=== PATIENT | female | born 1945 | race Caucasian/White ===

== ENCOUNTER 2017-01-01 20:28 | Inpatient (IN) | payer MEDICARE, OTHER ==
--- NOTE | ~2017-01-01 | HP ---
History And Physical [place] [id number] [facility] [place]. [address] NAME: KODI KEVIN : 43 STATUS : ADM IN [facility]#: [id number] AGE: 71 ADM/REG DATE : 01/01/17 MR#: [id number] REPORT SERV DATE: 01/02/17 DICTATED BY: IRENE ARREAGA DATE: 01/01/17 REPORT STATUS : Draft TRANSCRIBED BY: MODL DATE: 01/01/17 DATE OF ADMISSION: 01/01/2017 REASON FOR ADMISSION: Direct admission from primary care doctor office in [place], possibly Dr. Gabrielle Lester. CHIEF COMPLAINT: Hyperbilirubinemia and scleral icterus. HISTORY OF PRESENT ILLNESS: This is a 71-year-old female. She has a known positive at least 90-fbuz-gavb history of active smoking, known history of hypertension, possible asthma on Advair and Singulair as an outpatient, hyperlipidemia on simvastatin 80 mg. The patient developed nausea that seemed to be constant then became more postprandial as well. On it abated a bit then it reappeared over the weekend, had decreased appetite. Had blood work, which showed significant hyperbilirubinemia, now with T-bilirubin 6.0, alkaline phosphatase 283, AST/ALT 154/254. Hepatitis serologies were negative. A lipasemia was 401 which is elevated. Amylase is 137, which is elevated. The patient endorsed positive chills, positive nausea, some mild vomiting at one time, nonbilious. Positive pruritus. No diarrhea. No chest pain. No chest pressure. No shortness of breath. She has a mild cough, and have them more when she is supine, some very mild subxiphoid heartburn-like sensation. The patient as a result had a CT abdomen and pelvis at an outpatient facility known she had a white count of only 5.7, hemoglobin of 14.3. A CT abdomen and pelvis showed biliary and pancreatic ductal dilation suggesting distal obstructive process, pancreatic head or ampulla. Further evaluation was recommended. This was actually from an abdominal ultrasound. Gallbladder showed being distended and containing sludge. She also had a CT of abdomen and pelvis that showed abnormally distended hydropic gallbladder containing high- density sludge without evidence of cholecystitis though, abnormally dilated intrahepatic bile ducts, extrahepatic bile duct, and pancreatic duct without evidence of obstructing stone or mass possibly due to distal stricturing of the ducts or to the ampullary stenosis. No CT evidence of acute pancreatitis. As a result, the patient had difficulty getting direct admission to other hospitals, came here as a result, happily admit the patient. Vitals currently on , she has 115/64 blood pressure, 98.8 temp, 68 pulse, 99% on room air, and 16 respirations. REVIEW OF SYSTEMS: Review of systems done, see HPI. Otherwise, negative. PAST MEDICAL HISTORY/PAST SURGICAL HISTORY: See above including appendectomy, squamous cell, superficial skin cancer removal, melanoma on the leg removal, basal cell carcinoma removal as well. ALLERGIES: CODEINE HEADACHE, DRUG INTOLERANCE. History And Physical [address] [address] NAME: KODI KEVIN : 43 STATUS : ADM IN [facility]#: [id number] AGE: 71 ADM/REG DATE : 01/01/17 MR#: [id number] REPORT SERV DATE: 01/02/17 DICTATED BY: IRENE ARREAGA DATE: 01/01/17 REPORT STATUS : Draft TRANSCRIBED BY: ZEN DATE: 01/01/17 HOME MEDICATIONS: See MAR. We will continue what is relevant. FAMILY HISTORY: Hypertension at least in one parent. SOCIAL HISTORY: Still 70-lufe-mtze active history of smoking. No alcohol. No drug use. OBJECTIVE: VITAL SIGNS: See vitals above. GENERAL: No acute distress. HEENT: Positive scleral icterus. Otherwise PERRLA. CARDIOVASCULAR: Regular rate and rhythm. No murmur. No carotid bruits. RESPIRATORY: Clear to auscultation bilaterally. No wheezes. No crackles except decreased breath sounds. ABDOMEN: She does have some mild right upper quadrant positive Gray's tenderness to palpation. No peritoneal signs. No rebound tenderness. EXTREMITIES: No edema. No ecchymosis. NEURO: GCS 15. A and O x4/4. PSYCH: Mildly anxious. LABORATORY DATA: A 5.7 of white count, 14.3 hemoglobin, and 230,000 platelets. A 4.5 of potassium, bicarb 28, 0.74 creatinine, 9 BUN, 140 sodium, T bilirubin 6.0, alkaline phosphatase 283, AST/ALT 154/254. Lipase seem to be 401, amylase 137. Hepatitis serologies initially as an outpatient were negative. CT and ultrasound, see above. ASSESSMENT AND PLAN: 1. Biliary stricture versus mass versus biliary obstruction causing hyperbilirubinemia with cholestatic transaminitis and some lipasemia. 2. Biliary colic. 3. Clinical chronic obstructive pulmonary disease. 4. Smoking dependence/nicotine dependence. 5. Systemic inflammatory response syndrome, mild tachypnea that is transient, mild tachycardia that is transient. PLAN: Admit this patient to [address] [place] [address]. Likely needs eventually ERCP, we will give an MRCP at this time. GI consultation likely gallstone and gallbladder will be taken out. Pending ERCP results of the MRCP we will plan her simvastatin 80 mg which is a very high doses that simvastatin to Lipitor 40 mg, Toprol-XL 25 mg and always add additional antihypertensives as needed. We will add Spiriva for clinical COPD, empiric Levaquin and Flagyl as I do not have any CBC in front of me, except from three days ago. Rest of my orders. All questions were answered. It took well over 60 minutes to do. Reference [employer] and [employer]. History And Physical [address] [address] NAME: KODI KEVIN : 43 STATUS : ADM IN PAT#: [id number] AGE: 71 ADM/REG DATE : 01/01/17 MR#: [id number] REPORT SERV DATE: 01/02/17 DICTATED BY: IRENE ARREAGA DATE: 01/01/17 REPORT STATUS : Draft TRANSCRIBED BY: ZEN DATE: 01/01/17 MEKHI/ZEN Irene Arreaga DO / [id number] CC: DO Dale Nolasco MD
--- NOTE | ~2017-01-01 | CN ---
Consultation Report [facility] [address] [place]. [address] NAME: KODI RINCON : 43 STATUS : ADM IN PAT#: [id number] AGE: 71 ADM/REG DATE : 01/01/17 MR#: [id number] REPORT SERV DATE: 01/02/17 DICTATED BY: SAVITA GARNER DATE: 01/02/17 REPORT STATUS : Draft TRANSCRIBED BY: MODL DATE: 01/02/17 GI CONSULTATION DATE OF CONSULTATION: 01/02/2017 REASON FOR CONSULTATION: Evaluation and management of elevated LFTs and abnormal CT scan. HISTORY OF PRESENT ILLNESS: Ms Rincon is a pleasant 71-year-old female patient admitted to [facility] on with a chief complaint of elevated LFTs, abnormal CT scan, concern for biliary obstruction versus ampullary mass. She gives a history of symptom onset roughly 1.5 weeks ago with nausea, some epigastric bloating. She states it has been waxing and waning. She saw her primary care physician. She states she has been on multiple times with multiple labs being done. She had, at last check in her primary care physician's office, a total bilirubin of 6, alkaline phosphatase 283, AST 154, ALT 254. She was checked for hepatitis and returned negative. Lipase was 401. She had a CT scan done at the [facility] showing abnormally distended gallbladder containing high-density sludge, but without evidence of inflammation to indicate acute cholecystitis. She had also abnormally dilated intrahepatic bile ducts, extrahepatic bile ducts, and pancreatic duct without evidence of obstructing stone or mass. The appearance could possibly be secondary to a distal stricturing of the ducts or to ampullary stenosis. She was supposed to see a GI, Kina in [place], as well as a surgeon, but secondary to no bed availability at [facility] [place], she was sent to [facility] for further care. Presently, her total bilirubin was 4.3, alkaline phosphatase 251, ALT 276, and AST 164. White count is normal at 5.2. She is being covered with Levaquin and Flagyl. She has an MRCP ordered. I have discussed with the patient. She will likely undergo ERCP tomorrow with Dr. Jacob plus or minus an endoscopic ultrasound based on the MRCP findings. I did discuss risks, benefits, alternatives, and complications with her to include, but not limited to risk of bleeding, perforation, infection, reaction to medications with cardiac and pulmonary side effects. She is agreeable to proceed and also did include hpxr-[id number]-hzuuuuc pancreatitis. I did discuss with her we will have Dr. Eren Lopez see her here for possible cholecystectomy if needed. PAST MEDICAL HISTORY: Tobacco abuse, hypertension, elevated cholesterol, asthma, squamous- cell carcinoma, skin melanoma removal on the leg and basal cell carcinoma removal. PAST SURGICAL HISTORY: Appendectomy. ALLERGIES: CODEINE. HOME MEDICATIONS: Xanax, Advair, Proventil, Lopressor, Singulair, and Zocor. SOCIAL HISTORY: She is . Denies alcohol or illicit drugs. Positive for tobacco use. FAMILY HISTORY: Noncontributory from a GI standpoint. Consultation Report [address] [place]. [address] NAME: KODI RINCON : 43 STATUS : ADM IN [facility]#: [id number] AGE: 71 ADM/REG DATE : 01/01/17 MR#: [id number] REPORT SERV DATE: 01/02/17 DICTATED BY: SAVITA GARNER DATE: 01/02/17 REPORT STATUS : Draft TRANSCRIBED BY: ZEN DATE: 01/02/17 REVIEW OF SYSTEMS: A ten-point review of systems obtained. Pertinent positives addressed in the history of present illness. PHYSICAL EXAMINATION: VITAL SIGNS: Temperature 98.4, pulse 71, respirations 18, blood pressure 110/58. NEURO: Reveals an alert, female, sitting up in the bed with no focal deficits. GENERAL: Cooperative, in no apparent distress. She is awake, alert, and oriented x3. HEAD, EARS, EYES, NOSE, AND THROAT: She has mild scleral icterus noted. Very minimal jaundice to the skin. Pupils are equal, round, and reactive to light and accommodation. Normocephalic and atraumatic. NECK: No JVD. No palpable nodes. LUNGS: Coarse and diminished bilaterally in the bases with normal respiratory effort exhibited. Equal expansion. CARDIOVASCULAR SYSTEM: Regular rate and rhythm. ABDOMEN: Soft. Mild epigastric tenderness to deep palpation. Active bowel sounds. No organomegaly appreciated. PERTINENT LABORATORY DATA: Sodium is 141, potassium 4.3, and chloride is 104. Creatinine is 0.68. BUN is 6. White count 5.2, hemoglobin 13, hematocrit 39.3, and total bilirubin 4.3, alkaline phosphatase 251, ALT 276, AST 164, CA-19-9 is 308. ASSESSMENT: 1. Elevated liver function tests. 2. Questionable biliary obstruction versus ampullary mass. 3. Nausea with abdominal bloating. 4. Tobacco dependence. PLAN: 1. Follow with MRCP results. 2. +/- EUS at the time of ERCP on the . 3. We will hold her heparin for consult Dr. Lopez. 4. Questionable cholecystectomy during hospitalization. 5. Morning labs. 6. Continue antibiotic coverage. 7. We will give her preprocedure indomethacin per rectum. We will follow. JOAN/ZEN Savita CAROLYNN Horowitz Consultation Report [address] [place]. [address] NAME: KODI RINCON JOBY : 43 STATUS : ADM IN PAT#: [id number] AGE: 71 ADM/REG DATE : 01/01/17 MR#: [id number] REPORT SERV DATE: 01/02/17 DICTATED BY: SAVITA GARNER DATE: 01/02/17 REPORT STATUS : Draft TRANSCRIBED BY: ZEN DATE: 01/02/17 / [id number] CC: Lazaro Santiago PAUL DANIEL
--- NOTE | ~2017-01-01 | EGD ---
EGD REPORT [facility] [address] [address] NAME: KODI KEVIN : 43 STATUS : ADM IN PAT#: [id number] AGE: 71 ADM/REG DATE : 01/01/17 MR#: [id number] REPORT SERV DATE: 01/03/17 DICTATED BY: OLEKSANDR CHANEY DATE: 01/03/17 REPORT STATUS : Draft TRANSCRIBED BY: [facility] DATE: 01/03/17 Endoscopy Center Patient Name: Kodi Keivn Date of : 1945 Attending MD: OLEKSANDR CHANEY MD Procedure Date No Time: 01/03/2017 Procedure: ERCP Indications: Jaundice Referring MD: Dale Nixon Medicines: Monitored Anesthesia Care, General Anesthesia, Indomethacin 100 mg rectal Complications: No immediate complications. Estimated blood loss: Minimal. Procedure: Pre-Anesthesia Assessment: - ASA Grade Assessment: II - A patient with mild systemic disease. After obtaining informed consent, the scope was passed under direct vision. Throughout the procedure, the patient's blood pressure, pulse, and oxygen saturations were monitored continuously. The TJF Q180V [id number] was introduced through the mouth, and advanced to the duodenum and used to inject contrast into the bile duct. The ERCP was accomplished without difficulty. The patient tolerated the procedure well. Findings: The api architect film was normal. The esophagus was successfully intubated under direct vision without detailed examination of the pharynx, larynx, and associated structures, and upper GI tract. The entire second portion of the duodenum surrounding the major papilla was edematous and severely congested making cannulation difficult. There was also significant motility that made the procedure very difficult. After finally engaging the papilla and attempting to cannulate the common bile duct several times, the wire was found to preferentially enter the pancreatic duct. After passing the wire into the pancreatic duct several times, the wire was left in place and a second 0.035-inch Jagwire was used to attempt to cannulate the CBD alongside the PD wire. After several additional attempts, the CBD was finally accessed with a wire and was cannulated with the sphinctertome. The bile duct was deeply cannulated with the short-nosed traction sphincterotome. Contrast was injected. I personally interpreted the bile duct images. Image quality was adequate. The main bile duct was diffusely dilated, without a clear obstruction. A 12 mm biliary sphincterotomy was made with a monofilament traction (standard) sphincterotome using ERBE electrocautery. The sphincterotomy oozed blood. To discover objects, the biliary tree was swept with a 12 mm EGD REPORT [place] [address] [facility] [place]. [address] NAME: KODI KEVIN : 43 STATUS : ADM IN [facility]#: [id number] AGE: 71 ADM/REG DATE : 01/01/17 MR#: [id number] REPORT SERV DATE: 01/03/17 DICTATED BY: OLEKSANDR CHANEY DATE: 01/03/17 REPORT STATUS : Draft TRANSCRIBED BY: [employer] DATE: 01/03/17 balloon starting at the bifurcation. Nothing was found. However, after the first sweep, the cannulation was lost and despite several attempts to recannulate, there was persistent strong motility despite use of 2 grams of glucagon that the papilla was unable to be engaged again. Bile was draining from the sphincterotomy. The procedure was then terminated. Impression: - Significant swelling in the second portion of the duodenum. - The entire main bile duct was dilated, but no clear obstruction was seen. - Sphincterotomy cut, but unable to perform brushings or place stent due to swelling in the duodenum and abnormally strong motility Recommendation: - Return patient to [facility] for ongoing care. - Use broad spectrum antibiotics for 7 days. - Clear liquid diet. Procedure Code(s): --- Professional --- 64720, Endoscopic retrograde cholangiopancreatography (ERCP); with sphincterotomy/papillotomy Diagnosis Code(s): --- Professional --- K83.9, Disease of biliary tract, unspecified K83.1, Obstruction of bile duct R17, Unspecified jaundice CPT copyright 2013 [employer]. All rights reserved. The codes documented in this report are preliminary and upon hcc coders review may be revised to meet current compliance requirements. Oleksandr Chaney MD OLEKSANDR CHANEY MD 01/03/2017 9:27 AM This report has been signed electronically. Number of Addenda: 0 Note Initiated On: 01/03/2017 7:34 AM Scope Withdrawal Time 0 hours 0 minutes 0 seconds [address] [place] [address]
--- NOTE | ~2017-01-01 | CN ---
Consultation Report [place] [address] [facility] [place]. [address] NAME: KODI KEVIN : 43 STATUS : ADM IN [facility]#: [id number] AGE: 71 ADM/REG DATE : 01/01/17 MR#: [id number] REPORT SERV DATE: 01/03/17 DICTATED BY: SANIA CONKLIN III DATE: 01/03/17 REPORT STATUS : Draft TRANSCRIBED BY: MODBao DATE: 01/03/17 DATE OF CONSULTATION: 01/03/2017 ATTENDING PHYSICIAN: Dr. Hurt. REASON FOR CONSULT: 1. Obstructive jaundice. 2. Obstruction of distal common bile duct. 3. Recommendation regarding surgical management. HISTORY OF PRESENT ILLNESS: I am asked to see this 71-year-old female, hospitalized for the above reasons. The patient is admitted to the hospital after being sent directly from the office of her primary care physician in [facility], on 01/01/2017. The patient complains of nausea, associated with upper abdominal discomfort and bloating. The patient noted that her urine became very dark. She was seen by her primary care physician and noted to be jaundiced. It was felt that admission to the hospital is indicated. The patient had imaging studies in [place], which showed stones or sludge in the gallbladder and biliary dilatation. There was no evidence on the ultrasound of inflammatory changes consistent with cholecystitis. The patient has no prior history of similar symptoms. The patient states these symptoms have been ongoing for two weeks. She states her appetite has been very poor and she has had weight loss during this time. On admission, her bilirubin was 4.3. PAST MEDICAL HISTORY: 1. History of tobacco abuse. 2. History of hypertension. 3. History of hypercholesterolemia. 4. History of COPD secondary to tobacco abuse. PAST SURGICAL HISTORY: Status post appendectomy. ALLERGIES: CODEINE. MEDICATIONS: Xanax, Advair, Proventil, Lopressor, Singulair, and Zocor. SOCIAL HISTORY: The patient is . She lives in [facility]. She has a history of tobacco abuse. She has no history of alcohol use. FAMILY HISTORY: Unremarkable. REVIEW OF SYSTEMS: The patient's fourteen-point review of systems otherwise unremarkable. OBJECTIVE PHYSICAL EXAMINATION: GENERAL: This is a female, in no acute distress. She is Consultation Report [place] [id number] [place]. [address] NAME: KODI KEVIN : 43 STATUS : ADM IN PAT#: [id number] AGE: 71 ADM/REG DATE : 01/01/17 MR#: [id number] REPORT SERV DATE: 01/03/17 DICTATED BY: SANIA CONKLIN III DATE: 01/03/17 REPORT STATUS : Draft TRANSCRIBED BY: MODL DATE: 01/03/17 slightly jaundiced and her sclerae are icteric. VITAL SIGNS: Blood pressure 139/63, temperature 98.1. Pulse 79. HEENT: Unremarkable except for jaundice. NEURO: Cranial nerves 2 through 12 are normal. LUNGS: Clear. CARDIAC: Normal. ABDOMEN: Soft. Nontender. No masses. EXTREMITIES: Normal. LABORATORY DATA: Electrolytes are normal. Total bilirubin is elevated at 4.3 on admission. It has decreased to 2.3. Alkaline phosphatase 247. White blood cell count is 4.7 and hematocrit 39. MRI of the abdomen, which I have reviewed shows evidence for biliary dilatation with what appears to be obstruction at the level of the ampulla. No stones were seen and no definite masses seen. No pancreatic mass seen. The common bile duct system was dilated up to 1.2 cm and the pancreatic ductal system was also dilated. The gallbladder was distended, but no definite gallstones are seen. ASSESSMENT: 1. A 71-year-old female with obstructive jaundice, with unclear etiology. Imaging studies showed no definite ampullary or pancreatic mass. Sludge apparently was seen on the gallbladder ultrasound, but was not seen on the MRI. 2. Tobacco abuse. 3. Chronic obstructive pulmonary disease secondary to tobacco abuse. 4. Hypercholesterolemia. 5. Hypertension. PLAN: The patient has been admitted and started on parenteral fluids. The ERCP is pending for today. These findings and symptoms are of concern for a possible pancreatic or ampullary malignancy. Further workup is pending, primarily ERCP or possibly EUS. This plan has been explained to the patient. Her questions have been answered. She understands and agrees to this as planned. ELIZABETH/ZEN Sania Conklin III, M.D. / [id number] CC: Jax Veras M.D. Consultation Report [address] [address] NAME: KODI KEVIN : 43 STATUS : ADM IN PAT#: [id number] AGE: 71 ADM/REG DATE : 01/01/17 MR#: [id number] REPORT SERV DATE: 01/03/17 DICTATED BY: SANIA CONKLIN III DATE: 01/03/17 REPORT STATUS : Draft TRANSCRIBED BY: MODL DATE: 01/03/17 AMAYA WRIGHT
--- NOTE | ~2017-01-01 | DS ---
Discharge Summary [place] [id number] [place]. [address] NAME: KODI KEVIN : 43 STATUS : DIS IN PAT#: [id number] AGE: 71 ADM/REG DATE : 01/01/17 MR#: [id number] REPORT SERV DATE: 01/06/17 DICTATED BY: DATE: REPORT STATUS : Draft TRANSCRIBED BY: MODL DATE: 01/05/17 ADMISSION DATE: 01/01/2017 DISCHARGE DATE: 01/05/2017 The patient was admitted to the [facility]. CONSULTANTS: Included 1. Luiz Lopez M.D. of Surgical Oncology. 2. Oleksandr Jacob MD of Gastroenterology. DISCHARGE DIAGNOSES: 1. Obstructive jaundice. 2. 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 3. Mild post ERCP pancreatitis. 4. Gallbladder sludge but no stone. 5. Chronic obstructive pulmonary disease. 6. Tobacco abuse. 7. Hypertension. 8. Hyperlipidemia. 9. Impaired fasting glucose with hyperglycemia during hospitalization. IMAGING AND DIAGNOSTICS: Included 1. An MRCP done on 01/02/2017 with marked obstruction of the distal common bile duct and pancreas in the pancreatic head at the sphincter of Oddi. No definite intraluminal defects such as a stone. No classic features of a pancreatic head tumor. Could be a small sphincter of Oddi tumor or possibly a stricture at the sphincter. 2. ERCP on 01/03/[address] Oleksandr Jacob showed significant swelling in the second portion of the duodenum. The entire main bile duct was dilated, but no clear obstruction was seen. Sphincterotomy was performed but unable to perform brushings or place a stent due to swelling in the duodenum and abnormally strong motility. LABORATORY DATA: White blood cell count was normal. Procalcitonin 0.12. Comprehensive metabolic panel is pertinent for AST values between 160 and 200, ALT values between 250 and 300, alkaline phosphatase between 200 and 300. Total bilirubin values between 2.9 and 4.3. CA 19-9 was elevated at 308. CEA negative. TSH normal. Urinalysis with urobilinogen, 10 white cells, moderate leukocyte esterase. Subsequent culture demonstrated less than 5000 colony-forming units of diphtheroids. Lipase elevated between 850 and 1100 post ERCP. BRIEF HISTORY: For full details, please see the previously dictated history of present illness by Dr. Lloyd Hurt. This is a 71-year-old white female admitted from her primary care provider's office with labs demonstrating obstructive jaundice, mild increase in lipase, and some postprandial nausea and decreased appetite. Outpatient evaluation had included CT of abdomen and pelvis showing biliary and pancreatic ductal dilatation suggestive of a distal obstructive process, pancreatic head or ampullary fullness. Gallbladder ultrasound showed a distended gallbladder with sludge, but no evidence of acute cholecystitis. There was dilation of the intrahepatic bile ducts, extrahepatic bile ducts, Discharge Summary [address] [address] NAME: KODI KEVIN : 43 STATUS : DIS IN PAT#: [id number] AGE: 71 ADM/REG DATE : 01/01/17 MR#: [id number] REPORT SERV DATE: 01/06/17 DICTATED BY: DATE: REPORT STATUS : Draft TRANSCRIBED BY: MODL DATE: 01/05/17 and pancreatic duct without any evidence of obstructing stone or mass. There was no evidence of pancreatitis on any of the imaging. The patient resides in [place] and had been seeking direct admission to [facility] for further workup, there were no beds available. A bed became available at [facility], and the patient was directly admitted here for further GI evaluation. HOSPITAL COURSE: The patient was admitted to [address] [place] [address]. GI and Surgical Oncology were consulted, and the patient underwent an MRCP with results as dictated above. There was no evidence of a definitive stone nor definitive evidence of a pancreatic head mass or mass near the common bile duct. Thus, the patient underwent an ERCP on the 01/03/[address] Jacob noted diffuse edema through the first part of the duodenum, with dilation of the main bile duct. He was able to perform a sphincterotomy, but due to swelling of the duodenum and extreme peristalsis was unable to obtain brushings or place a stent. Post procedure, the patient's liver enzymes became progressively elevated initially. She was kept in the hospital for additional observation until liver enzymes were demonstrating down trend, which occurred on the morning of 01/05/2017. The patient was tolerating a full liquid diet without any nausea or vomiting, and no abdominal pain. She did have a slightly elevated lipase at discharge suggestive of post ERCP pancreatitis, clinically mild. The patient was seen by Dr. Eren Lopez of Surgical Oncology during the admission for concerns of a possible ampullary mass or sphincter of Oddi malignancy. Again, no definitive diagnosis could be found this admission, although brushings were not able to be performed on the ERCP for reasons noted above. Thus, the patient is to have extremely close outpatient followup, and she was counseled on the necessity for surveillance labs, possibly a repeat ERCP or endoscopic ultrasound, and repeat imaging. She was also advised that if she experiences any increase in her abdominal pain or recurrent nausea or vomiting on a soft low-fat bland diet that she will need to return to the emergency department for probable worsening pancreatitis. DISCHARGE DISPOSITION: To home in the care of supportive family with no specific activity restrictions. Diet recommendations of soft low-fat bland diet at discharge. She will follow up with Dr. Dale Nixon this week for repeat laboratories including CMP and lipase. She will also need an outpatient pancreatic protocol CT scan arranged within 2 to 3 weeks by her primary care provider. She needs to follow up with Dr. Sauceda of [facility] within 3 to 4 weeks for potential repeat ERCP or endoscopic ultrasound. She was provided with the phone number to schedule the appointment on Friday. DISCHARGE MEDICATIONS: Include Discharge Summary [address] [address] NAME: KODI KEVIN : 43 STATUS : DIS IN PAT#: [id number] AGE: 71 ADM/REG DATE : 01/01/17 MR#: [id number] REPORT SERV DATE: 01/06/17 DICTATED BY: DATE: REPORT STATUS : Draft TRANSCRIBED BY: SHIRINL DATE: 01/05/17 1. Singulair 10 mg p.o. daily. 2. Lopressor 50 mg p.o. twice a day. 3. Xanax 0.5 mg p.o. at bedtime as needed for insomnia. 4. Zocor 80 mg p.o. at bedtime. 5. Prinivil 20 mg p.o. daily. 6. Advair Diskus 250/50 one puff inhaled daily as needed for shortness of breath. Thirty five minutes was spent in completion of the discharge. PRETTY/ZEN Jax Veras M.D. / [id number] CC: Lazaro Santiago MD JOHN DANIEL BOEREMA Richard Hunter Jennings III, M.D.
[2017-01-01] MEDS ORDERED: X5 PO (21:39)
[2017-01-01] MEDS ORDERED: SINGULAIR1 PO (21:39)
[2017-01-01] MEDS ORDERED: ZOCOR80 MG PO (21:39)
[2017-01-01] MEDS ORDERED: ADVAIR250 INH (21:40)
[2017-01-01] MEDS ORDERED: LOP50 PO (21:40)
[2017-01-01] MEDS ORDERED: PRIN20 PO (21:40)
[2017-01-01 23:13] LABS: CREATININE 0.7 MG/DL (0.55-1.02)
[2017-01-02 00:09] LABS: BASOPHILS 0.4 %; BASOPHILS ABSOLUTE 0.02 10/3/uL (0.0-0.16); EOSINOPHILS 5.5 %; EOSINOPHILS ABSOLUTE 0.28 10/3/uL (0.0-0.53); HEMATOCRIT 37.1 % (36.0-48.0); HEMOGLOBIN 12.5 g/dL (12.0-16.0); IMMATURE GRANULOCYTES 0.2 %; IMMATURE GRANULOCYTES ABSOLUTE 0.01 10/3/uL (0.0-0.11); LYMPHOCYTES 28.4 %; LYMPHOCYTES ABSOLUTE 1.45 10/3/uL (0.67-4.30); MEAN CORPUS HGB CONC 33.7 g/dL (32.0-36.0); MEAN CORPUSCULAR HEMOGLOB 33.1 pg (26.0-34.0); MEAN CORPUSCULAR VOLUME 98.1 fL (80-100); MEAN PLATELET VOLUME 10.8 fL (9.2-13.0); MONOCYTES 8.6 %; MONOCYTES ABSOLUTE 0.44 10/3/uL (0.21-1.20); NEUTROPHILS 56.9 %; PLATELET COUNT 222 10/3/uL (150-400); RBC DISTRIBUTION WIDTH 14.7 % (12.0-16.0); RED CELL COUNT 3.78 10/6/uL (4.0-5.6); WHITE BLOOD CELLS 5.1 10/3/uL (4.5-10.5)
[2017-01-02 00:13] LABS: MANUAL DIFF NO %
[2017-01-02 00:44] LABS: ALBUMIN 3.1 G/DL (3.5-5.0); ALKALINE PHOSPHATASE 251 U/L (45-117); BUN (BLOOD UREA NITROGEN) 8 MG/DL (6-23); CALCIUM, SERUM 8.3 MG/DL (8.5-10.4); CHLORIDE, SERUM 104 MMOL/L (96-112); CO2 (CARBON DIOXIDE) 29 MMOL/L (24-34); CREATININE 0.68 MG/DL (0.55-1.02); GFR AFRICAN AMERICAN 101 ML/MIN (>=60); GFR NON AFRICAN AMERICAN 87 ML/MIN (>=60); GLUCOSE, SERUM 145 MG/DL (60-99); PHOSPHORUS, SERUM 3.8 MG/DL (2.5-4.5); POTASSIUM, SERUM 3.6 MMOL/L (3.5-5.3); SGOT(AST) 164 U/L (5-40); SGPT(ALT) 276 U/L (5-65); SODIUM, SERUM 142 MMOL/L (135-148); TOTAL BILIRUBIN 4.3 MG/DL (0-1.2); TOTAL PROTEIN 6.1 G/DL (6.0-8.5); TROPONIN I <0.02 NG/ML (<0.05)
[2017-01-02 00:58] LABS: PROCALCITONIN 0.12 ng/mL (<0.5)
[2017-01-02 01:18] LABS: CA-19-9 308.1 U/ML (< 37.0)
[2017-01-02 01:19] LABS: CEA 3.2 NG/ML
[2017-01-02 04:54] LABS: ASCORBIC ACID (UR NOT ORDER) NEG (NEG); BILIRUBIN, URINE NEGATIVE (NEG); KETONE, URINE NEGATIVE (NEG); LEUKOCYTE ESTERASE(NOT OR MOD (NEG); WBC (NOT ORDERED) (RFLEX) 10 (0-5)
[2017-01-02 07:28] LABS: BASOPHILS 0.4 %; BASOPHILS ABSOLUTE 0.02 10/3/uL (0.0-0.16); EOSINOPHILS 4.8 %; EOSINOPHILS ABSOLUTE 0.25 10/3/uL (0.0-0.53); HEMATOCRIT 39.3 % (36.0-48.0); IMMATURE GRANULOCYTES 0.2 %; IMMATURE GRANULOCYTES ABSOLUTE 0.01 10/3/uL (0.0-0.11); LYMPHOCYTES 21.2 %; MEAN CORPUS HGB CONC 33.1 g/dL (32.0-36.0); MEAN CORPUSCULAR HEMOGLOB 32.7 pg (26.0-34.0); MEAN PLATELET VOLUME 11.1 fL (9.2-13.0); MONOCYTES 8.1 %; MONOCYTES ABSOLUTE 0.42 10/3/uL (0.21-1.20); NEUTROPHILS 65.3 %; NEUTROPHILS ABSOLUTE 3.39 10/3/uL (2.02-8.40); PLATELET COUNT 225 10/3/uL (150-400); RBC DISTRIBUTION WIDTH 14.8 % (12.0-16.0); RED CELL COUNT 3.97 10/6/uL (4.0-5.6); WHITE BLOOD CELLS 5.2 10/3/uL (4.5-10.5)
[2017-01-02 07:31] LABS: MANUAL DIFF NO %
[2017-01-02 07:45] LABS: BUN (BLOOD UREA NITROGEN) 6 MG/DL (6-23); CALCIUM, SERUM 8.6 MG/DL (8.5-10.4); CHLORIDE, SERUM 104 MMOL/L (96-112); CO2 (CARBON DIOXIDE) 28 MMOL/L (24-34); CREATININE 0.68 MG/DL (0.55-1.02); GFR AFRICAN AMERICAN 101 ML/MIN (>=60); GFR NON AFRICAN AMERICAN 87 ML/MIN (>=60); GLUCOSE, SERUM 133 MG/DL (60-99); PHOSPHORUS, SERUM 3.5 MG/DL (2.5-4.5); POTASSIUM, SERUM 4.3 MMOL/L (3.5-5.3); SODIUM, SERUM 141 MMOL/L (135-148); TROPONIN I <0.02 NG/ML (<0.05)
[2017-01-03 06:29] LABS: BASOPHILS 1.1 %; BASOPHILS ABSOLUTE 0.05 10/3/uL (0.0-0.16); EOSINOPHILS 7.1 %; EOSINOPHILS ABSOLUTE 0.33 10/3/uL (0.0-0.53); HEMATOCRIT 39.2 % (36.0-48.0); HEMOGLOBIN 13.1 g/dL (12.0-16.0); IMMATURE GRANULOCYTES 0.4 %; IMMATURE GRANULOCYTES ABSOLUTE 0.02 10/3/uL (0.0-0.11); LYMPHOCYTES 26.3 %; LYMPHOCYTES ABSOLUTE 1.23 10/3/uL (0.67-4.30); MEAN CORPUS HGB CONC 33.4 g/dL (32.0-36.0); MEAN CORPUSCULAR HEMOGLOB 32.8 pg (26.0-34.0); MEAN CORPUSCULAR VOLUME 98.2 fL (80-100); MEAN PLATELET VOLUME 11.4 fL (9.2-13.0); MONOCYTES ABSOLUTE 0.47 10/3/uL (0.21-1.20); NEUTROPHILS 55.1 %; NEUTROPHILS ABSOLUTE 2.58 10/3/uL (2.02-8.40); PLATELET COUNT 230 10/3/uL (150-400); RBC DISTRIBUTION WIDTH 14.6 % (12.0-16.0); RED CELL COUNT 3.99 10/6/uL (4.0-5.6); WHITE BLOOD CELLS 4.7 10/3/uL (4.5-10.5)
[2017-01-03 06:30] LABS: INTERNATIONAL NORMAL RATI 1.1 UNITS (-); PROTIME (NOT ORD) 13.6 SEC (12.0-14.5)
[2017-01-03 06:31] LABS: MANUAL DIFF NO %
[2017-01-03 06:38] LABS: A/G RATIO 0.9 (0.7-1.9); ALKALINE PHOSPHATASE 247 U/L (45-117); BUN (BLOOD UREA NITROGEN) 5 MG/DL (6-23); CALCIUM, SERUM 8.9 MG/DL (8.5-10.4); CHLORIDE, SERUM 106 MMOL/L (96-112); CO2 (CARBON DIOXIDE) 27 MMOL/L (24-34); CREATININE 0.62 MG/DL (0.55-1.02); DIRECT BILIRUBIN 1.6 MG/DL (0.0-0.4); GFR AFRICAN AMERICAN 104 ML/MIN (>=60); GFR NON AFRICAN AMERICAN 90 ML/MIN (>=60); GLOBULIN 3.2 G/DL (2.5-4.1); GLUCOSE, SERUM 117 MG/DL (60-99); INDIRECT BILIRUBIN(NOT ORDER) 0.9 MG/DL (0.1-0.9); PHOSPHORUS, SERUM 3.5 MG/DL (2.5-4.5); SGOT(AST) 107 U/L (5-40); SGPT(ALT) 219 U/L (5-65); SODIUM, SERUM 141 MMOL/L (135-148); TOTAL PROTEIN 6.2 G/DL (6.0-8.5)
[2017-01-03 06:46] LABS: TOTAL BILIRUBIN 2.5 MG/DL (0-1.2)
[2017-01-03 19:46] LABS: ALBUMIN 2.8 G/DL (3.5-5.0); DIRECT BILIRUBIN 2.6 MG/DL (0.0-0.4); INDIRECT BILIRUBIN(NOT ORDER) 0.8 MG/DL (0.1-0.9); TOTAL BILIRUBIN 3.4 MG/DL (0-1.2); TOTAL PROTEIN 5.8 G/DL (6.0-8.5)
[2017-01-04 07:06] LABS: BASOPHILS 0.4 %; BASOPHILS ABSOLUTE 0.02 10/3/uL (0.0-0.16); EOSINOPHILS 2.6 %; EOSINOPHILS ABSOLUTE 0.14 10/3/uL (0.0-0.53); HEMATOCRIT 36.3 % (36.0-48.0); HEMOGLOBIN 12.2 g/dL (12.0-16.0); IMMATURE GRANULOCYTES 0.4 %; IMMATURE GRANULOCYTES ABSOLUTE 0.02 10/3/uL (0.0-0.11); LYMPHOCYTES ABSOLUTE 0.66 10/3/uL (0.67-4.30); MEAN CORPUS HGB CONC 33.6 g/dL (32.0-36.0); MEAN CORPUSCULAR HEMOGLOB 33.3 pg (26.0-34.0); MEAN CORPUSCULAR VOLUME 99.2 fL (80-100); MEAN PLATELET VOLUME 11.6 fL (9.2-13.0); MONOCYTES 7.7 %; MONOCYTES ABSOLUTE 0.42 10/3/uL (0.21-1.20); NEUTROPHILS 76.9 %; NEUTROPHILS ABSOLUTE 4.22 10/3/uL (2.02-8.40); PLATELET COUNT 232 10/3/uL (150-400); RBC DISTRIBUTION WIDTH 14.4 % (12.0-16.0); RED CELL COUNT 3.66 10/6/uL (4.0-5.6); WHITE BLOOD CELLS 5.5 10/3/uL (4.5-10.5)
[2017-01-04 07:11] LABS: MANUAL DIFF NO %
[2017-01-04 07:13] LABS: BUN (BLOOD UREA NITROGEN) 5 MG/DL (6-23); CALCIUM, SERUM 8.4 MG/DL (8.5-10.4); CHLORIDE, SERUM 103 MMOL/L (96-112); CO2 (CARBON DIOXIDE) 28 MMOL/L (24-34); CREATININE 0.68 MG/DL (0.55-1.02); DIRECT BILIRUBIN 2.6 MG/DL (0.0-0.4); GFR AFRICAN AMERICAN 101 ML/MIN (>=60); GFR NON AFRICAN AMERICAN 87 ML/MIN (>=60); GLUCOSE, SERUM 111 MG/DL (60-99); INDIRECT BILIRUBIN(NOT ORDER) 1.1 MG/DL (0.1-0.9); PHOSPHORUS, SERUM 3.4 MG/DL (2.5-4.5); POTASSIUM, SERUM 4.2 MMOL/L (3.5-5.3); SGOT(AST) 144 U/L (5-40); SGPT(ALT) 216 U/L (5-65); SODIUM, SERUM 141 MMOL/L (135-148); TOTAL BILIRUBIN 3.7 MG/DL (0-1.2)
[2017-01-04 07:15] LABS: ALKALINE PHOSPHATASE 275 U/L (45-117)
[2017-01-04 18:08] LABS: ALBUMIN 3.2 G/DL (3.5-5.0); TOTAL BILIRUBIN 3.8 MG/DL (0-1.2); TOTAL PROTEIN 6.1 G/DL (6.0-8.5)
[2017-01-04 18:09] LABS: DIRECT BILIRUBIN 3.1 MG/DL (0.0-0.4); INDIRECT BILIRUBIN(NOT ORDER) 0.7 MG/DL (0.1-0.9)
[2017-01-05 06:46] LABS: BASOPHILS 1.2 %; BASOPHILS ABSOLUTE 0.05 10/3/uL (0.0-0.16); EOSINOPHILS 5.9 %; EOSINOPHILS ABSOLUTE 0.24 10/3/uL (0.0-0.53); HEMATOCRIT 37.4 % (36.0-48.0); HEMOGLOBIN 12.2 g/dL (12.0-16.0); IMMATURE GRANULOCYTES 0.2 %; IMMATURE GRANULOCYTES ABSOLUTE 0.01 10/3/uL (0.0-0.11); LYMPHOCYTES 25.9 %; LYMPHOCYTES ABSOLUTE 1.06 10/3/uL (0.67-4.30); MEAN CORPUS HGB CONC 32.6 g/dL (32.0-36.0); MEAN CORPUSCULAR HEMOGLOB 32.1 pg (26.0-34.0); MEAN CORPUSCULAR VOLUME 98.4 fL (80-100); MEAN PLATELET VOLUME 11.4 fL (9.2-13.0); MONOCYTES 8.6 %; MONOCYTES ABSOLUTE 0.35 10/3/uL (0.21-1.20); NEUTROPHILS 58.2 %; NEUTROPHILS ABSOLUTE 2.38 10/3/uL (2.02-8.40); PLATELET COUNT 220 10/3/uL (150-400); RBC DISTRIBUTION WIDTH 14.8 % (12.0-16.0); WHITE BLOOD CELLS 4.1 10/3/uL (4.5-10.5)
[2017-01-05 06:47] LABS: MANUAL DIFF NO %
[2017-01-05 06:57] LABS: ALBUMIN 2.9 G/DL (3.5-5.0); ALKALINE PHOSPHATASE 297 U/L (45-117); BUN (BLOOD UREA NITROGEN) 6 MG/DL (6-23); CALCIUM, SERUM 8.5 MG/DL (8.5-10.4); CHLORIDE, SERUM 107 MMOL/L (96-112); CO2 (CARBON DIOXIDE) 29 MMOL/L (24-34); CREATININE 0.68 MG/DL (0.55-1.02); DIRECT BILIRUBIN 2.1 MG/DL (0.0-0.4); GFR AFRICAN AMERICAN 101 ML/MIN (>=60); GFR NON AFRICAN AMERICAN 87 ML/MIN (>=60); GLUCOSE, SERUM 97 MG/DL (60-99); INDIRECT BILIRUBIN(NOT ORDER) 0.8 MG/DL (0.1-0.9); PHOSPHORUS, SERUM 3.2 MG/DL (2.5-4.5); SGOT(AST) 129 U/L (5-40); SGPT(ALT) 197 U/L (5-65); SODIUM, SERUM 142 MMOL/L (135-148); TOTAL BILIRUBIN 2.9 MG/DL (0-1.2)
[2017-02-04] MEDS ORDERED: ULTRAM50 PO (18:22)
[2017-04-01] MEDS ORDERED: [UNRECOGNIZED DRUG - OTHER] PO (13:07)
== END 2017-01-05 14:34 | disposition home or self-care (01) | DRG 444 ==
LOC: 5SO 20:28
PROVIDERS: Internal Medicine; Internal Medicine Gastroenterology
PROC: 0FJB8ZZ Inspection of Hepatobiliary Duct, Via Natural or Artificial Opening Endoscopic (ICD-10-PCS; principal; 2017-01-03 07:00)
DX: K83.1 Obstruction of bile duct (principal); K85.80 Other acute pancreatitis without necrosis or infection; J44.9 Chronic obstructive pulmonary disease, unspecified; F17.210 Nicotine dependence, cigarettes, uncomplicated; Z82.49 Family history of ischemic heart disease and other diseases of the circulatory system; Z79.899 Other long term (current) drug therapy; Z90.49 Acquired absence of other specified parts of digestive tract; I10 Essential (primary) hypertension; Z88.5 Allergy status to narcotic agent
CPT/HCPCS: 74181; 74330; 80048; 80053; 80076; 81001; 82150; 82248; 82378; 82565; 82962; 83605; 83615; 83690; 83735; 84100; 84145; 84443; 84484; 85025; 85610; 86301; 87086; 87449; 93005; A9270-GY; C1769; C9113; J1610; J1956; J2370; J2405; J2710; J3010; Q9967

== ENCOUNTER 2017-01-24 14:35 | Day surgery (SDC) | payer MEDICARE, OTHER ==
--- NOTE | ~2017-01-24 | EGD ---
EGD REPORT [place] [address] [address] NAME: KODI KEVIN : 43 STATUS : REG [facility] PAT#: [id number] AGE: 71 ADM/REG DATE : 01/24/17 MR#: [id number] REPORT SERV DATE: 01/24/17 DICTATED BY: LUANA ALMANZA DATE: 01/24/17 REPORT STATUS : Draft [facility]ANS[facility]ED [facility]: [facility] DATE: 01/24/17 Endoscopy Center Patient Name: Kodi Kevin Date of : 1945 Attending MD: LUANA ALMANZA, Procedure Date No Time: 01/24/2017 Procedure: ERCP Indications: Jaundice Referring MD: Dale Nixon Medicines: General Anesthesia Complications: No immediate complications. Estimated blood loss: None Procedure: Pre-Anesthesia Assessment: - ASA Grade Assessment: III - A patient with severe systemic disease. After obtaining informed consent, the scope was passed under direct vision. Throughout the procedure, the patient's blood pressure, pulse, and oxygen saturations were monitored continuously. The TJF [id number] was introduced through the mouth, and advanced to the duodenum and used to inject contrast into the bile duct. The Endoscope was introduced through the and advanced to the duodenum. The ERCP was accomplished without difficulty. The patient tolerated the procedure well. Findings: A biliary sphincterotomy had been performed. The sphincterotomy appeared open. The major papilla was congested. The bile duct was deeply cannulated with the short-nosed traction sphincterotome. Contrast was injected. I personally interpreted the bile duct images. Ductal flow of contrast was adequate. The main bile duct was diffusely dilated, acquired. The largest diameter was 10 mm. The lower third of the main bile duct contained a single localized stenosis 10 mm in length at the very distal duct. Cells for cytology were obtained from the lower third of the main bile duct by brushing. One 10 mm by 6 cm covered metal stent was placed into the common bile duct. Bile flowed through the stent. The stent was in good position. Impression: - Prior biliary endoscopic sphincterotomy appeared open. - The major papilla appeared congested. - The entire main bile duct was dilated, acquired. - A localized biliary stricture was found. Recommendation: - Return to previous diet. - Continue present medications. - Await cytology results. EGD REPORT [address] [address] NAME: KODI KEVIN : 43 STATUS : REG [facility]#: [id number] AGE: 71 ADM/REG DATE : 01/24/17 MR#: [id number] REPORT SERV DATE: 01/24/17 DICTATED BY: LUANA ALMANZA DATE: 01/24/17 REPORT STATUS : Draft TRANSCRIBED BY: [employer] DATE: 01/24/17 - Likely need surgical referral. Procedure Code(s): --- Professional --- 77196, Endoscopic retrograde cholangiopancreatography (ERCP); with placement of endoscopic stent into biliary or pancreatic duct, including pre- and post-dilation and guide wire passage, when performed, including sphincterotomy, when performed, each stent Diagnosis Code(s): --- Professional --- K83.9, Disease of biliary tract, unspecified K83.5, Biliary cyst K83.8, Other specified diseases of biliary tract K87, Disorders of gallbladder, biliary tract and pancreas in diseases classified elsewhere K83.1, Obstruction of bile duct R17, Unspecified jaundice CPT copyright 2013 [employer]. All rights reserved. The codes documented in this report are preliminary and upon machine feeder review may be revised to meet current compliance requirements. LUANA ALMANZA, 01/24/2017 4:16 PM Number of Addenda: 0 Note Initiated On: 01/24/2017 1:17 PM Scope Withdrawal Time 0 hours 0 minutes 0 seconds [address] [address]
--- NOTE | ~2017-01-24 | EGD ---
EGD REPORT [facility] [address] [address] NAME: KODI KEVIN : 43 STATUS : REG [facility] PAT#: [id number] AGE: 71 ADM/REG DATE : 01/24/17 MR#: [id number] REPORT SERV DATE: 01/24/17 DICTATED BY: LUANA ALMANZA DATE: 01/24/17 REPORT STATUS : Draft TRANSCRIBED BY: [facility] DATE: 01/24/17 Endoscopy Center Patient Name: Kodi Kevin Date of : 1945 Attending MD: LUANA ALMANZA, Procedure Date No Time: 01/24/2017 Procedure: Upper EUS Indications: CBD stricture on MRCP, Suspected solid pancreatic neoplasm. Obstructive jaundice. Referring MD: Dale Nixon Medicines: Monitored Anesthesia Care Complications: No immediate complications. Estimated blood loss: None. Procedure: Pre-Anesthesia Assessment: - ASA Grade Assessment: III - A patient with severe systemic disease. After obtaining informed consent, the endoscope was passed under direct vision. Throughout the procedure, the patient's blood pressure, pulse, and oxygen saturations were monitored continuously. The Endoscope was introduced through the mouth, and advanced to the second part of duodenum. Findings: Endosonographic Finding : There was no sign of significant endosonographic abnormality in the entire pancreas. No masses, the pancreatic duct was well visualized from ampulla to tail, the pancreatic duct was regular in contour. There was dilation in the common bile duct which measured up to 10 mm. No lymphadenopathy seen. There was no sign of significant endosonographic abnormality in the examined duodenum. Endosonographic images of the stomach were unremarkable. There was no sign of significant endosonographic abnormality in the esophagus. Impression: - There was no sign of significant pathology in the entire pancreas. - There was dilation in the common bile duct which measured up to 10 mm. - There was no sign of significant pathology in the examined duodenum. - Endosonographic images of the stomach were unremarkable. - There was no sign of significant pathology in the esophagus. EGD REPORT [facility] [address] [place]. [address] NAME: KODI KEVIN : 43 STATUS : REG [facility]#: [id number] AGE: 71 ADM/REG DATE : 01/24/17 MR#: [id number] REPORT SERV DATE: 01/24/17 DICTATED BY: LUANA ALMANZA DATE: 01/24/17 REPORT STATUS : Draft TRANSCRIBED BY: Arieso DATE: 01/24/17 Recommendation: - Return to previous diet. - Continue present medications. - Perform an ERCP today. Procedure Code(s): --- Professional --- 19307, Esophagogastroduodenoscopy, flexible, transoral; with endoscopic ultrasound examination, including the esophagus, stomach, and either the duodenum or a surgically altered stomach where the jejunum is examined distal to the anastomosis Diagnosis Code(s): --- Professional --- K83.8, Other specified diseases of biliary tract K83.1, Obstruction of bile duct CPT copyright 2013 [employer]. All rights reserved. The codes documented in this report are preliminary and upon net maker review may be revised to meet current compliance requirements. LUANA ALMANZA, 01/24/2017 4:13 PM Number of Addenda: 0 Note Initiated On: 01/24/2017 1:18 PM Scope Withdrawal Time 0 hours 0 minutes 0 seconds [address] [id number]
[~2017-01-24 14:35] MED LIST: ADVAIR250 INH; LOP50 PO; PRIN20 PO; SINGULAIR1 PO; X5 PO; ZOCOR80 MG PO
[2017-02-04] MEDS ORDERED: ULTRAM50 PO (18:22)
[2017-04-01] MEDS ORDERED: [UNRECOGNIZED DRUG - OTHER] PO (13:07)
== END 2017-01-24 19:43 | disposition home or self-care (01) ==
LOC: DMU 14:35
PROVIDERS: Internal Medicine Gastroenterology
PROC: 0F798DZ Dilation of Common Bile Duct with Intraluminal Device, Via Natural or Artificial Opening Endoscopic (ICD-10-PCS; principal; 2017-01-24 15:38)
PROC: 0DJ08ZZ Inspection of Upper Intestinal Tract, Via Natural or Artificial Opening Endoscopic (ICD-10-PCS; 2017-01-24 16:00)
DX: K83.1 Obstruction of bile duct (principal); K83.8 Other specified diseases of biliary tract; M19.90 Unspecified osteoarthritis, unspecified site; E78.00 Pure hypercholesterolemia, unspecified; K83.5 Biliary cyst; R17 Unspecified jaundice; Z88.5 Allergy status to narcotic agent; I10 Essential (primary) hypertension; Z87.891 Personal history of nicotine dependence
CPT/HCPCS: 74330; 88112; A9270-GY; C1725; C1769; C1876; J2250; J2370; J2405; J2710; J3010; Q9967

== ENCOUNTER 2017-02-06 11:51 | Observation (INO) | payer MEDICARE, OTHER ==
[2017-02-04 13:42] LABS: BASOPHILS 0.7 %; BASOPHILS ABSOLUTE 0.06 10/3/uL (0.0-0.16); EOSINOPHILS 1.9 %; EOSINOPHILS ABSOLUTE 0.16 10/3/uL (0.0-0.53); HEMOGLOBIN 12.6 g/dL (12.0-16.0); IMMATURE GRANULOCYTES 0.4 %; IMMATURE GRANULOCYTES ABSOLUTE 0.03 10/3/uL (0.0-0.11); LYMPHOCYTES 21.4 %; LYMPHOCYTES ABSOLUTE 1.82 10/3/uL (0.67-4.30); MEAN CORPUS HGB CONC 33.2 g/dL (32.0-36.0); MEAN CORPUSCULAR HEMOGLOB 32.9 pg (26.0-34.0); MEAN CORPUSCULAR VOLUME 99.2 fL (80-100); MONOCYTES 7.2 %; MONOCYTES ABSOLUTE 0.61 10/3/uL (0.21-1.20); NEUTROPHILS 68.4 %; NEUTROPHILS ABSOLUTE 5.83 10/3/uL (2.02-8.40); RED CELL COUNT 3.83 10/6/uL (4.0-5.6)
[2017-02-04 13:47] LABS: MANUAL DIFF NO %; PLATELET COUNT 397 10/3/uL (150-400); WHITE BLOOD CELLS 8.5 10/3/uL (4.5-10.5)
[2017-02-04 13:48] LABS: PROTIME (NOT ORD) 12.6 SEC (12.0-14.5)
[2017-02-04 13:49] LABS: PARTIAL THROMBO TIME 36.8 SEC (22.5-37.2)
[2017-02-04 13:58] LABS: A/G RATIO 0.6 (0.7-1.9); ALBUMIN 2.5 G/DL (3.5-5.0); ALKALINE PHOSPHATASE 684 U/L (45-117); BUN (BLOOD UREA NITROGEN) 6 MG/DL (6-23); CALCIUM, SERUM 8.9 MG/DL (8.5-10.4); CHLORIDE, SERUM 101 MMOL/L (96-112); CO2 (CARBON DIOXIDE) 31 MMOL/L (24-34); CREATININE 0.47 MG/DL (0.55-1.02); GFR AFRICAN AMERICAN 114 ML/MIN (>=60); GFR NON AFRICAN AMERICAN 99 ML/MIN (>=60); GLOBULIN 3.9 G/DL (2.5-4.1); GLUCOSE, SERUM 122 MG/DL (60-99); SGOT(AST) 125 U/L (5-40); SGPT(ALT) 249 U/L (5-65); SODIUM, SERUM 140 MMOL/L (135-148); TOTAL BILIRUBIN 0.8 MG/DL (0-1.2); TOTAL PROTEIN 6.4 G/DL (6.0-8.5)
--- NOTE | ~2017-02-06 | OP ---
Record Of Operation [facility] [address] [place]. [address] NAME: KODI RINCON : 43 STATUS : ADM [facility] PAT#: [id number] AGE: 71 ADM/REG DATE : 02/06/17 MR#: [id number] REPORT SERV DATE: 02/06/17 DICTATED BY: KENZIE VANEGAS DATE: 02/06/17 REPORT STATUS : Draft TRANSCRIBED BY: MODL DATE: 02/06/17 DATE OF PROCEDURE: 02/06/2017 ATTENDING PHYSICIAN: Dr. Kenzie Vanegas. RESIDENT: Dr. Yina Lott. PREOPERATIVE DIAGNOSES: 1. 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 2. Biliary colic. POSTOPERATIVE DIAGNOSES: 1. 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 2. Biliary colic. PROCEDURE: Laparoscopic cholecystectomy. ANESTHESIA: General endotracheal anesthesia with local anesthetic administered by the surgeon. IV FLUIDS: 1100 mL. EBL: 10 mL. SPECIMEN: Gallbladder and contents and Calot's node. DRAINS: None. URINE OUTPUT: Not measured. COMPLICATIONS: None apparent. INDICATIONS: Ms. Rincon is a 71-year-old female, who presented to the hospital at the end of last month with obstructive jaundice. She underwent ERCP and was found to have ampullary stenosis. Secondary to continued pain, laparoscopic cholecystectomy was offered. Preoperatively, benefits, alternatives, and risks including bleeding, infection, risk of damage to adjacent structures including common bile duct and adjacent intestine as well as risk of port site hernia, chronic diarrhea, and risk of general endotracheal anesthesia including, but not limited to heart attack, stroke, and were all described in detail to the patient preoperatively. After having all questions answered, the patient voiced understanding of these risks and desired to proceed with surgery. PROCEDURE IN DETAIL: The patient was identified preoperatively as Kodi Rincon. It was determined the appropriately signed documents including history and physical and operative permit were secured in the chart. She was taken to the operating room, placed supine on the operating table where general endotracheal anesthesia was induced by the Anesthesia Service, Record Of Operation [facility] [address] [place]. [address] NAME: KODI RINCON : 43 STATUS : ADM [facility] PAT#: [id number] AGE: 71 ADM/REG DATE : 02/06/17 MR#: [id number] REPORT SERV DATE: 02/06/17 DICTATED BY: KENZIE VANEGAS DATE: 02/06/17 REPORT STATUS : Draft TRANSCRIBED BY: MODBao DATE: 02/06/17 who monitored the patient throughout the procedure. The abdomen was prepped and draped sterilely and an appropriate time-out procedure was completed wherein the patient, procedure site, positioning, allergies, equipment and administration of antibiotics were verified prior to beginning. An incision was made within the umbilical wall. This was dissected down to the level of the fascia, which was grasped, elevated, and incised between clamps. Entrance into the peritoneum was confirmed visually. A 10/12 trocar was placed and the abdomen was insufflated. The patient tolerated this well. Laparoscopic inserted, abdomen surveyed. No injury from initial trocar placement was noted. Furthermore, the abdomen was surveyed. There was no evidence of gross cancer anywhere or other pathology. Additional trocars were placed in the following locations after anesthetizing the skin, a 10 mm in the epigastrium and two 5 mm along the right costal margin. The gallbladder was noted to be quite distended. There were omental adhesions that required lysing with a combination of blunt dissection and electrocautery. Secondary to the gallbladder being tense, it was aspirated with a needle. Gallbladder was then grasped and retracted over the dome of the liver and the infundibulum was grasped and retracted toward the right lower quadrant. This exposed Calot's triangle. The cystic duct and cystic artery were circumferentially dissected free of surrounding tissues until the junction of the gallbladder and cystic duct was clearly identified. The cystic duct was noted to be dilated. Therefore, a PDS ligature was chosen to secure the proximal side of the cystic duct. The cystic artery was doubly clipped with two clips proximally, one clip distally, and ligated between clips. The gallbladder was then relieved with peritoneal attachments to the liver with electrocautery, placed in a laparoscopic retrieval bag, and removed from the abdomen through the umbilical port site. The abdomen was irrigated and suctioned free of irrigant. Hemostasis was ensured with electrocautery. Accessary trocars were then removed under direct vision. There was no intraabdominal bleeding. Laparoscope removed, umbilical trocar removed, and the abdomen was allowed to desufflate completely. The fascia of the umbilicus was closed with 0 Vicryl. Good tissue approximation was noted. All skin sites were closed with Monocryl in a subcuticular fashion except for the depth of the umbilical skin. A Xeroform was placed here and 4x4s and Tegaderm. Band-Aids were placed over the accessory incisions. This ended the procedure. All counts of needles, sponges, and instruments were correct at the end of the case. Dr. Vanegas was present and scrubbed for the entirety of the surgical procedure. Sedation was stopped. The patient was allowed to awaken and extubated in the operating room, and taken to postanesthesia care unit in good condition after having tolerated the procedure well. No intraoperative complications are noted. DICTATED BY: MD MIKY Vasquez/ZEN Kenzie Vanegas MD / [id number] CC: Kenzie Vanegas MD
[~2017-02-06 11:51] MED LIST changes: +ULTRAM50 PO
[2017-02-07 07:05] LABS: BASOPHILS 0.1 %; BASOPHILS ABSOLUTE 0.02 10/3/uL (0.0-0.16); EOSINOPHILS 0.1 %; EOSINOPHILS ABSOLUTE 0.01 10/3/uL (0.0-0.53); HEMATOCRIT 37.4 % (36.0-48.0); HEMOGLOBIN 12.1 g/dL (12.0-16.0); IMMATURE GRANULOCYTES 0.4 %; IMMATURE GRANULOCYTES ABSOLUTE 0.06 10/3/uL (0.0-0.11); LYMPHOCYTES 5.9 %; LYMPHOCYTES ABSOLUTE 0.85 10/3/uL (0.67-4.30); MEAN CORPUS HGB CONC 32.4 g/dL (32.0-36.0); MEAN CORPUSCULAR HEMOGLOB 32.6 pg (26.0-34.0); MEAN CORPUSCULAR VOLUME 100.8 fL (80-100); MEAN PLATELET VOLUME 9.9 fL (9.2-13.0); MONOCYTES 5.2 %; MONOCYTES ABSOLUTE 0.75 10/3/uL (0.21-1.20); NEUTROPHILS 88.3 %; NEUTROPHILS ABSOLUTE 12.73 10/3/uL (2.02-8.40); PLATELET COUNT 387 10/3/uL (150-400); RBC DISTRIBUTION WIDTH 13.8 % (12.0-16.0); RED CELL COUNT 3.71 10/6/uL (4.0-5.6)
[2017-02-07 07:08] LABS: MANUAL DIFF NO %; WHITE BLOOD CELLS 14.4 10/3/uL (4.5-10.5)
[2017-02-07 07:19] LABS: A/G RATIO 0.6 (0.7-1.9); ALBUMIN 2.5 G/DL (3.5-5.0); ALKALINE PHOSPHATASE 450 U/L (45-117); BUN (BLOOD UREA NITROGEN) 10 MG/DL (6-23); CALCIUM, SERUM 8.8 MG/DL (8.5-10.4); CHLORIDE, SERUM 98 MMOL/L (96-112); CO2 (CARBON DIOXIDE) 28 MMOL/L (24-34); CREATININE 0.77 MG/DL (0.55-1.02); GFR AFRICAN AMERICAN 89 ML/MIN (>=60); GFR NON AFRICAN AMERICAN 77 ML/MIN (>=60); GLOBULIN 4.1 G/DL (2.5-4.1); GLUCOSE, SERUM 212 MG/DL (60-99); POTASSIUM, SERUM 5.9 MMOL/L (3.5-5.3); SGOT(AST) 47 U/L (5-40); SGPT(ALT) 97 U/L (5-65); SODIUM, SERUM 135 MMOL/L (135-148); TOTAL PROTEIN 6.6 G/DL (6.0-8.5)
[2017-02-07] MEDS ORDERED: ZOFRAN4 PO (08:13)
[2017-02-07] MEDS ORDERED: OXYCOD PO (08:14)
[2017-04-01] MEDS ORDERED: [UNRECOGNIZED DRUG - OTHER] PO (13:07)
== END 2017-02-07 13:39 | disposition home or self-care (01) ==
LOC: SDC 11:51 → SDC/OF 17:22 → 5SO 18:59
PROVIDERS: Transplant Surgery
PROC: 0FT44ZZ Resection of Gallbladder, Percutaneous Endoscopic Approach (ICD-10-PCS; principal; 2017-02-06 14:00)
DX: K80.10 Calculus of gallbladder with chronic cholecystitis without obstruction (principal); I10 Essential (primary) hypertension; E78.00 Pure hypercholesterolemia, unspecified; M19.90 Unspecified osteoarthritis, unspecified site; R17 Unspecified jaundice; Z88.5 Allergy status to narcotic agent; Z87.01 Personal history of pneumonia (recurrent); Z90.49 Acquired absence of other specified parts of digestive tract; Z90.89 Acquired absence of other organs; Z98.890 Other specified postprocedural states
CPT/HCPCS: 80053; 85025; 85610; 85730; 88304; 93005; 94640; 96374; 96375; 96376; A9270-GY; G0378; J0690; J0694; J1170; J2250; J2405; J2710; J3010; Q9967

== ENCOUNTER 2017-03-05 16:21 | Inpatient (IN) | payer MEDICARE, OTHER ==
--- NOTE | ~2017-03-05 | HP ---
History And Physical [facility] [address] [facility] [place]. [address] NAME: KODI KEVIN : 43 STATUS : ADM IN [facility]#: [id number] AGE: 71 ADM/REG DATE : 03/05/17 MR#: [id number] REPORT SERV DATE: 03/06/17 DICTATED BY: IVY VALENZUELA DATE: 03/05/17 REPORT STATUS : Draft TRANSCRIBED BY: MODBao DATE: 03/05/17 DATE OF ADMISSION: 03/05/2017 CHIEF COMPLAINT: Intractable nausea and vomiting. HISTORY OF PRESENT ILLNESS: The patient is a 71-year-old female with a history of hypertension and COPD and biliary stricture, currently following with the GI Service. The patient is a direct admit from her GI physician, Dr. Sauceda, due to intractable nausea and vomiting. The patient has a history of biliary stricture. She is status post an ERCP with metal stent placement and also status post cholecystectomy. The patient tolerated the procedure well, however, had some vomiting which eventually resolved. The patient presented today to the GI office for her followup visit, at which time, she was complaining of intermittent abdominal pain. While in the office, the patient developed intractable nausea and vomiting. Her emesis appeared to be bilious. Given this development, the patient was sent over for to [facility] for admission under Hospitalist Service for further management. At the time of my evaluation, the patient corroborated the above story and states that the last time she had p.o. intake was yesterday, states that today she has been vomiting all through the day and describes her vomitus as clear yellowish green liquid. Also, reports abdominal epigastric pain and some mild back pain. She states that she feels also unwell. REVIEW OF SYSTEMS: Also at the time of my evaluation, the patient had episodes of coughing spells making it difficult to obtain review of systems. Review of systems unable to obtain as noted above. PAST MEDICAL HISTORY: 1. COPD. 2. Hypertension. 3. History of biliary stricture. 4. Tobacco abuse. PAST SURGICAL HISTORY: 1. Appendectomy. 2. Squamous cell superficial skin cancer removal. 3. Cholecystectomy. FAMILY HISTORY: Significant for hypertension. ALLERGIES: THE PATIENT IS ALLERGIC TO CODEINE. SOCIAL HISTORY: The patient has a 40-pack year smoking history. She is currently smoking despite being counseled to desist from smoking. Denies any alcohol or drug use. HOME MEDICATIONS: Not available at the time of dictation. PHYSICAL EXAMINATION: History And Physical [address] [place]. [address] NAME: KODI KEVIN : 43 STATUS : ADM IN PAT#: [id number] AGE: 71 ADM/REG DATE : 03/05/17 MR#: [id number] REPORT SERV DATE: 03/06/17 DICTATED BY: IVY VALENZUELA DATE: 03/05/17 REPORT STATUS : Draft TRANSCRIBED BY: ZEN DATE: 03/05/17 The patient is a direct admit. VITAL SIGNS: Have not been obtained at this point. GENERAL: The patient in mild distress noticing to have very frequent coughing spells. The patient appears emaciated and frail. Also, the patient in mild distress. HEENT: Normocephalic, atraumatic. Extraocular motors intact. Pupils round and reactive to light and accommodation. No conjunctival injection. No scleral icterus noted. CARDIOVASCULAR: Regular rate rhythm. S1, S2. No murmurs, rubs, or gallops. LUNGS: Clear to auscultation bilaterally. No wheezing, rales, or rhonchi. ABDOMEN: Soft. Positive bowel sounds. Tenderness noted in the epigastric area. No organomegaly noted. No distention present. No rebound tenderness and no guarding present. EXTREMITIES: No cyanosis, no clubbing, no edema. NEUROLOGIC: Alert and oriented x3. No focal deficits appreciated. LABORATORY DATA: No available labs at this time as the patient is a direct admit. ASSESSMENT: Intractable nausea, vomiting. The patient has a history of biliary stricture, status post surgical intervention and replacement not too long ago, well known to the GI Service. PLAN: 1. We will place the patient on antiemetics and consult GI. We will also obtain a CT scan of abdomen and pelvis with contrast to further characterize the etiology of the pain, nausea, and vomiting. 2. History of biliary stricture, status post cholecystectomy, managed as #1 above. 3. COPD stable. 4. Abdominal pain in the epigastric area, likely secondary to intractable nausea and vomiting. We will place the patient on antiemetics and also pain medications. 5. Tobacco abuse. We will place the patient on nicotine patch. 6. Hypertension. We will watch and stop the patient on home medications. PEPE/ZEN Ivy Valenzuela MD / [id number] CC: MD KYLE Rowland PAUL DANIEL
--- NOTE | ~2017-03-05 | EGD ---
EGD REPORT [facility] [address] [address] NAME: KODI KEVIN : 43 STATUS : ADM IN PAT#: [id number] AGE: 71 ADM/REG DATE : 03/05/17 MR#: [id number] REPORT SERV DATE: 03/07/17 DICTATED BY: OLEKSANDR CHANEY DATE: 03/07/17 REPORT STATUS : Draft TRANSCRIBED BY: [facility] DATE: 03/07/17 End[facility] Center Patient Name: Kodi Kevin Date of : 1945 Attending MD: OLEKSANDR CHANEY MD Procedure Date No Time: 03/07/2017 Procedure: Upper EUS Indications: Suspected pancreatic neoplasm, Weight loss, Epigastric abdominal pain, Persistent vomiting Referring MD: Dale Nixon Medicines: Monitored Anesthesia Care Complications: No immediate complications. Estimated blood loss: Minimal. Procedure: Pre-Anesthesia Assessment: - ASA Grade Assessment: III - A patient with severe systemic disease. After obtaining informed consent, the endoscope was passed under direct vision. Throughout the procedure, the patient's blood pressure, pulse, and oxygen saturations were monitored continuously. The Endoscope was introduced through the mouth, and advanced to the duodenal bulb. The GIF [id number] was introduced through the mouth, and advanced to the duodenal bulb. The upper EUS was accomplished without difficulty. The patient tolerated the procedure well. Findings: Endoscopic Finding : A single medium-sized nodule was found at the gastroesophageal junction. Biopsies were taken with a cold forceps for histology. Estimated blood loss was minimal. The entire examined stomach was normal. An acquired severe stenosis with abnormal appearing mucosa was found at 2nd part of the duodenum and was traversed. Biopsies were taken with a cold forceps for histology. Estimated blood loss was minimal. Endosonographic Finding : One stent was visualized endosonographically in the common bile duct. Extension of the stent was noted in the upper third of the main bile duct. The pancreatic duct had a dilated endosonographic appearance in the body of the pancreas and in the tail of the pancreas. The pancreatic duct measured up to 5 mm in diameter. Pancreatic parenchymal abnormalities were noted in the pancreatic head. These consisted of an area of hypoechoic foci around the CBD stent measuring approximately 35x35 mm. Fine needle aspiration was performed. EGD REPORT [address] [address] NAME: KODI KEVIN : [birth year] STATUS : ADM IN [facility]#: [id number] AGE: 71 ADM/REG DATE : 03/05/17 MR#: [id number] REPORT SERV DATE: 03/07/17 DICTATED BY: OLEKSANDR CHANEY DATE: 03/07/17 REPORT STATUS : Draft TRANSCRIBED BY: [employer] DATE: 03/07/17 Color Doppler imaging was utilized prior to needle puncture to confirm a lack of significant vascular structures within the needle path. Ten passes were made with the 25 gauge needle using a transduodenal approach. Some passes were made with a stylet. A first assist was present and performed a preliminary cytologic examination. Final cytology results are pending. Estimated blood loss was minimal. Endosonographic imaging of the visualized portion of the liver showed no abnormalities. One enlarged lymph node was visualized in the raleigh hepatis region. It measured 10 mm. The node was oval, hypoechoic and had well defined margins. A limited doppler examination was performed and revealed no significant vascular abnormalities. Impression: - Nodule found in the esophagus. Biopsied. - Normal stomach. - Acquired duodenal stenosis. Biopsied. - One stent was visualized endosonographically in the common bile duct. - The pancreatic duct had a dilated endosonographic appearance in the body of the pancreas and in the tail of the pancreas. The pancreatic duct measured up to 5 mm in diameter. - Pancreatic parenchymal abnormalities consisting of a large area of hypoechoic foci was noted in the pancreatic head. FNA was performed. - One - two enlarged lymph nodes was visualized in the raleigh hepatis region. - A limited doppler examination was performed and revealed no significant vascular abnormalities. Recommendation: - Return patient to [facility] for ongoing care. - Await cytology results. - Clear liquid diet today. Procedure Code(s): --- Professional --- 40726, Esophagogastroduodenoscopy, flexible, transoral; with transendoscopic ultrasound-guided intramural or transmural fine needle aspiration/biopsy(s) (includes endoscopic ultrasound examination of the esophagus, stomach, and either the duodenum or a surgically altered stomach where the jejunum is examined distal to the anastomosis) 59001, 59, Esophagogastroduodenoscopy, flexible, transoral; with biopsy, single or multiple Diagnosis Code(s): --- Professional --- EGD REPORT [address] [address] NAME: KODI KEVIN : [birth year] STATUS : ADM IN [facility]#: [id number] AGE: 71 ADM/REG DATE : 03/05/17 MR#: [id number] REPORT SERV DATE: 03/07/17 DICTATED BY: OLEKSANDR CHANEY DATE: 03/07/17 REPORT STATUS : Draft TRANSCRIBED BY: [employer] DATE: 03/07/17 K22.8, Other specified diseases of esophagus K31.5, Obstruction of duodenum R93.3, Abnormal findings on diagnostic imaging of other parts of digestive tract K86.9, Disease of pancreas, unspecified R59.0, Localized enlarged lymph nodes R63.4, Abnormal weight loss R10.13, Epigastric pain R11.10, Vomiting, unspecified CPT copyright 2013 [employer]. All rights reserved. The codes documented in this report are preliminary and upon lock and dam repairer review may be revised to meet current compliance requirements. Oleksandr Chaney MD OLEKSANDR CHANEY MD 03/07/2017 10:34 AM This report has been signed electronically. Number of Addenda: 0 Note Initiated On: 03/07/2017 9:01 AM Scope Withdrawal Time 0 hours 0 minutes 0 seconds [address] [id number]
--- NOTE | ~2017-03-05 | IDS ---
Interim Discharge Summary [facility] [address] [place]. [address] NAME: KODI RINCON : 43 STATUS : ADM IN [facility]#: [id number] AGE: 71 ADM/REG DATE : 03/05/17 MR#: [id number] REPORT SERV DATE: 03/11/17 DICTATED BY: IVY VALENZUELA DATE: 03/10/17 REPORT STATUS : Draft TRANSCRIBED BY: MODL DATE: 03/10/17 ADMISSION DATE: 03/05/2017 DISCHARGE DATE: Ms. Rincon is a 71-year-old female with a history of COPD and tobacco abuse, who presented to the hospital with a complaint of persistent nausea and vomiting. The patient is well known to the GI Service. 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 Status post that procedure, the patient had persistent symptoms which prompted a followup cholecystectomy as the patient thought that her symptoms were due to her gallbladder. Status post cholecystectomy, the patient initially improved; however, her symptoms returned prompting presentation to her clearance cutter's office. At the time of evaluation at the clearance cutter's office, the patient was having persistent vomiting which prompted a direct transfer to [facility]. Further chart review noted that her initial presentation was due to elevated LFTs which were noted to be secondary to biliary obstruction. At that time, the patient was seen by Gastroenterology and the patient subsequently had an ERCP which noted a 1 cm biliary stricture in the lower portion of the common bile duct which was brushed and stented. During that procedure samples were obtained which came back positive for atypical cells. At that time, the concern was for malignancy; however, pathology report came back and the etiology was consistent with inflammatory change. At the time of her presentation to the clearance cutter's office the initial thought was that may be the stent that was placed had migrated. The patient was admitted under Hospitalist Service. A CT abdomen and pelvis was obtained, which noted stent to be in stable position. However, the CT scan did note an enlargement of the head of the pancreas, which was concerning. A CA 19-9 was obtained together with a CEA which came back elevated at 1559 concerning for malignancy. GI subsequently took the patient to [facility] for an endoscopic ultrasound with biopsy. The patient is status post procedure and is awaiting pathology reports. Status post procedure the patient has remained hemodynamically stable for the most part with intermittent episodes of severe vomiting; however, yesterday on 03/09/2017 the patient developed a fever up to 102.9, prompting initiation of IV vancomycin and cefepime which the patient is currently on. Status post initiation of therapy her symptoms have significantly improved. Also during her hospitalization the patient's lipase was noted to be elevated at greater than 700 which trended up to greater than 800. The patient was diagnosed with pancreatitis and her IV fluid was increased to 200 mL/hour. Status post initiation of IV fluids, her lipase has progressively trended down and is currently at 410 with significant improvement in her symptoms. At this point, GI is still following the patient, awaiting pathology report to determine if the etiology of her system is secondary to a malignant process. INTERIM DIAGNOSES: Interim diagnoses at the time of dictation include: 1. Acute pancreatitis. 2. Elevated CA-19-9. 3. Tobacco abuse. 4. Chronic obstructive pulmonary disease. 5. Nausea and vomiting. 6. History of biliary stricture status post stent placement. Interim Discharge Summary [address] [address] NAME: KODI RINCON : 43 STATUS : ADM IN [facility]#: [id number] AGE: 71 ADM/REG DATE : 03/05/17 MR#: [id number] REPORT SERV DATE: 03/11/17 DICTATED BY: IVY VALENZUELA DATE: 03/10/17 REPORT STATUS : Draft TRANSCRIBED BY: ZEN DATE: 03/10/17 PROCEDURES: The patient had a CT abdomen and pelvis with contrast on 03/05/2017. The patient had an endoscopic ultrasound with biopsy on 03/07/2017. DISPOSITION: Pending pathology report to determine if this is a malignant process. If this is a malignant process, the next step will be a Surgery consult. Of note, the patient and some members of the family have been upset that the patient has been told that she has cancer without a definitive tissue diagnosis. At this point, we are reluctant about the possibility of surgery because they feel the patient is still weak and may not be able to undergo surgery. BIPIN Ivy Valenzuela MD / [id number] CC: MD Dale Rowland MD
--- NOTE | ~2017-03-05 | DS ---
Discharge Summary [facility] [address] [place]. [address] NAME: KODI KEVIN : 43 STATUS : DIS IN PAT#: [id number] AGE: 71 ADM/REG DATE : 03/05/17 MR#: [id number] REPORT SERV DATE: 03/14/17 DICTATED BY: DATE: REPORT STATUS : Draft TRANSCRIBED BY: MODL DATE: 03/13/17 ADMISSION DATE: 03/05/2017 DISCHARGE DATE: 03/13/2017 DISCHARGE DIAGNOSES: 1. Acute pancreatitis, resolved. 2. Biliary stricture, status post stent placement. 3. Elevated CA-99. 4. Tobacco abuse with chronic obstructive pulmonary disease. 5. Nausea, vomiting, and epigastric pain, resolved. CONSULTING PHYSICIANS: Include Dr. Oleksandr Jacob GI medicine as well as Dr. Vanegas with surgery. DISCHARGE MEDICATIONS: Include Xanax 0.5 mg p.o. at bedtime, Xanax 0.5 mg p.o. daily p.r.n. for anxiety, lisinopril 10 mg p.o. daily, Singulair 10 mg p.o. daily, Lopressor 50 mg p.o. b.i.d., Zocor 80 mg p.o. daily, oxycodone 5 mg p.o. q.6 hours p.r.n. for pain, nicotine patch 14 mg topical daily, Zantac 150 mg p.o. b.i.d., Advair Diskus 250/50 one puff inhalation b.i.d. IMAGING: Includes CT of the abdomen and pelvis with contrast which demonstrated a common bile duct stent in place with resolution of bile duct dilatation. There was enlargement of the head of the pancreas. Differential diagnosis suggested include a mass in the head of the pancreas and has not well delineated from the normal pancreas and no adenopathy was noted. PROCEDURES: Endoscopic ultrasound which was performed by Dr. Oleksandr Jacob for suspected pancreatic neoplasm. He performed a fine-needle aspiration which showed normal tissue. HOSPITAL COURSE/PROBLEM LIST: Please refer to Dr. Vinny Zurita's H and P dictated on 03/05/2017 as well as consultation report by Dr. Oleksandr Jacob on 03/05/[address] Vinny Zurita's interim discharge summary on 03/11/2017. I took over the care of this patient on 03/11/2014. 1. Acute pancreatitis. This is resolved. The patient's lipase initially was 410 and is now down to 391. She is not having abdominal pain at this time, or nausea and vomiting. As mentioned above, the patient does have a mass in the head of her pancreas, however, the fine needle aspiration was negative on EUS. The patient does have an elevated CA-99 of 1372.9 as well as a 40-pound weight loss since September of last year. The patient has been followed by Dr. Vanegas in Surgery. She will follow up with him as an outpatient on 03/27/2017 for possible Whipple procedure. 2. Biliary stricture, status post stent. The patient can follow up with Dr. Sauceda as needed if problems arise. 3. Tobacco abuse with COPD. I will continue the patient's home medication regimen as well as prescribe a nicotine patch. 4. Nausea, vomiting, and epigastric pain. This is resolved. Again the patient will follow up with Dr. Vanegas as well as Dr. Sauceda. Discharge Summary [address] [address] NAME: KODI KEVIN : 43 STATUS : DIS IN PAT#: [id number] AGE: 71 ADM/REG DATE : 03/05/17 MR#: [id number] REPORT SERV DATE: 03/14/17 DICTATED BY: DATE: REPORT STATUS : Draft TRANSCRIBED BY: MODL DATE: 03/13/17 This discharge took greater than 30 minutes for the patient education, medication reconciliation, and followup care planning. ATUL/ZEN Chaz Anderson NP / [id number] CC: Wilber Walker MD
--- NOTE | ~2017-03-05 | CN ---
Consultation Report [facility] [address] [place]. [address] NAME: KODI RINCON : 43 STATUS : ADM IN PAT#: [id number] AGE: 71 ADM/REG DATE : 03/05/17 MR#: [id number] REPORT SERV DATE: 03/06/17 DICTATED BY: OLEKSANDR CHANEY DATE: 03/06/17 REPORT STATUS : Draft TRANSCRIBED BY: MODL DATE: 03/06/17 INPATIENT CONSULTATION DATE OF CONSULTATION: 03/06/2017 REASON FOR CONSULTATION: Persistent nausea and vomiting. HISTORY OF PRESENT ILLNESS: Ms. Rincon is a very pleasant 71-year-old female with a past medical history most significant for indeterminate biliary stricture diagnosed in 12/2016, status post endoscopic ultrasound evaluation and biliary stent placement as well as recent cholecystectomy several weeks prior to this admission, who now presented as a direct admission from her tailer off's office for intractable nausea and vomiting. The patient had initially undergone a workup in 12/2016 for elevated LFTs and was found to have biliary obstruction. Initially attempt at ERCP for stent placement was unsuccessful due to difficulty with cannulation secondary to significant swelling in the second portion of the duodenum and severe spasming of her small bowel due to the prolonged nature of the procedure. Repeat procedure was performed three weeks later and the patient was noted to have a normal pancreas with no evidence of malignancy seen. The patient was found on ERCP to have a 1 cm biliary stricture in the lower portion of the common bile duct, which was brushed and stented, brushings came back positive for atypical cells, but not favoring malignancy, rather more favoring reactive or inflammatory cell type. Since then, the patient continued to have upper GI symptoms of nausea, vomiting, and abdominal pain. The patient underwent cholecystectomy for concern that her symptoms may be related to mild cholecystitis on 02/10/2017 and the patient did well for almost three weeks. After two and half weeks, the patient had a sudden return of her nausea and vomiting, which has been persistent since then. The patient has lost a total of 40 pounds per her account, 7 pounds just over the past week. No fevers or chills per her report. She complains of sharp epigastric pain, that is present most of the time, but is exacerbated by eating. No change in bowel habits. No jaundice. REVIEW OF SYSTEMS: All systems reviewed and were negative aside from what was mentioned in history of present illness. PAST MEDICAL HISTORY: Includes: 1. COPD. 2. Hypertension. 3. History of indeterminate biliary stricture. 4. Current cigarette smoker. 5. Status post appendectomy. 6. Status post cholecystectomy. 7. History of squamous cell superficial skin cancer. FAMILY HISTORY: The patient has no family history of GI related malignancy. Consultation Report [address] [address] NAME: KODI RINCON : 43 STATUS : ADM IN LOCATED WITHIN [facility]#: [id number] AGE: 71 ADM/REG DATE : 03/05/17 MR#: [id number] REPORT SERV DATE: 03/06/17 DICTATED BY: OLEKSANDR CHANEY DATE: 03/06/17 REPORT STATUS : Draft TRANSCRIBED BY: ZEN DATE: 03/06/17 SOCIAL HISTORY: The patient has a 40 pack year smoking history. No alcohol or drug use. ALLERGIES: THE PATIENT HAS AN ALLERGY TO CODEINE. HOME MEDICATIONS: Include: 1. Oxycodone. 2. Zantac. 3. Prinivil. 4. Lopressor. 5. Singulair. 6. Advair. 7. Xanax. 8. Zocor. PHYSICAL EXAMINATION: VITAL SIGNS: Most recent vital signs include a temperature of 98.4, with a T-max of 98.5, pulse rate of 74, blood pressure is 97/49, saturating 90% on 2 L nasal cannula oxygen. GENERAL INSPECTION: Reveals an elderly female, lying in bed, in no apparent distress. HEENT: Head is normocephalic, atraumatic with normal inspection of oral mucosa with moist mucous membranes. Sclerae are nonicteric. Pupils are equal and round. NECK: Supple without lymphadenopathy. HEART: Rate is regular with normal S1, S2. LUNGS: Sounds are clear to auscultation bilaterally. ABDOMEN: Soft with only mild tenderness to palpation in the epigastric area. No mass was appreciated. The patient had normoactive bowel sounds. No distention. EXTREMITIES: No cyanosis, clubbing, or edema. SKIN: No jaundice or rash. NEURO: No gross motor deficits. She was alert and oriented. Mood and affect are appropriate. Judgment appeared to be intact. LABORATORY STUDIES: Most recent laboratory results include CBC with normal white count of 10.0, hemoglobin of 12.3, and a platelet count of 313,000. Comprehensive metabolic panel was relatively unremarkable aside from a low chloride of 92, bicarb of 36, elevated creatinine of 2.03. Normal bilirubin. Elevated alkaline phosphatase of 247 and normal transaminases. DIAGNOSTIC STUDIES: CT of the abdomen and pelvis was performed, which showed a common bile duct stent in place with no biliary ductal dilatation and pneumobilia. There was enlargement of the head of the pancreas, possibly related to inflammation, but no definitive mass was seen. No focal liver lesions. No adenopathy. ASSESSMENT AND PLAN: Mrs. Rincon is a very pleasant 71-year-old female with past medical history of an indeterminate biliary stricture and recently status post cholecystectomy, who Consultation Report [address] [address] NAME: KODI RINCON : 43 STATUS : ADM IN PAT#: [id number] AGE: 71 ADM/REG DATE : 03/05/17 MR#: [id number] REPORT SERV DATE: 03/06/17 DICTATED BY: OLEKSANDR CHANEY DATE: 03/06/17 REPORT STATUS : Draft TRANSCRIBED BY: ZEN DATE: 03/06/17 presents with intractable nausea and vomiting. The patient has a CT scan that shows what appears to be a patent biliary stent with pneumobilia and relatively normal LFTs, although the patient's alkaline phosphatase is elevated, but this is no higher than previous values over the past several months. Concern for possible progression of her duodenal swelling secondary to either inflammation or possibly malignancy causing obstructive symptoms. We will proceed with EGD for further evaluation of the duodenum to see if there is any suggestion of continued narrowing of the small bowel. We will also perform an endoscopic ultrasound at the same time, to see if there is any evidence of lymphadenopathy or any mass in the head of the pancreas. We would also check CA 19-9, CEA to see if there is any elevation of her tumor markers. The patient previously had had an elevated CA 19-9. At that time, it was thought possibly related to biliary obstruction. If the patient has a persistently elevated CA 19-9, would be concerned about either cholangiocarcinoma or pancreatic cancer. Thank you very much for this interesting consult and allowing me to participate in Ms. Rincon's care. Please call with any questions or concerns you might have. C/MODL Oleksandr Chaney MD / [id number] CC: MD Dale Rowland
[~2017-03-05 16:21] MED LIST changes: +OXYCOD PO; +ZOFRAN4 PO
[2017-03-05 18:53] LABS: BASOPHILS 0.1 %; BASOPHILS ABSOLUTE 0.01 10/3/uL (0.0-0.16); EOSINOPHILS 0.1 %; EOSINOPHILS ABSOLUTE 0.02 10/3/uL (0.0-0.53); HEMOGLOBIN 13.7 g/dL (12.0-16.0); IMMATURE GRANULOCYTES 0.5 %; IMMATURE GRANULOCYTES ABSOLUTE 0.07 10/3/uL (0.0-0.11); LYMPHOCYTES 6.9 %; LYMPHOCYTES ABSOLUTE 0.95 10/3/uL (0.67-4.30); MEAN CORPUSCULAR HEMOGLOB 32.9 pg (26.0-34.0); MEAN PLATELET VOLUME 9.7 fL (9.2-13.0); MONOCYTES 6.6 %; MONOCYTES ABSOLUTE 0.91 10/3/uL (0.21-1.20); NEUTROPHILS 85.8 %; NEUTROPHILS ABSOLUTE 11.75 10/3/uL (2.02-8.40); PLATELET COUNT 366 10/3/uL (150-400); RBC DISTRIBUTION WIDTH 12.8 % (12.0-16.0); RED CELL COUNT 4.17 10/6/uL (4.0-5.6); WHITE BLOOD CELLS 13.7 10/3/uL (4.5-10.5)
[2017-03-05 18:55] LABS: MANUAL DIFF NO %; MEAN CORPUS HGB CONC 34.3 g/dL (32.0-36.0); MEAN CORPUSCULAR VOLUME 95.9 fL (80-100)
[2017-03-05 19:09] LABS: A/G RATIO 0.6 (0.7-1.9); ALBUMIN 2.9 G/DL (3.5-5.0); BUN (BLOOD UREA NITROGEN) 12 MG/DL (6-23); CALCIUM, SERUM 9.3 MG/DL (8.5-10.4); CHLORIDE, SERUM 93 MMOL/L (96-112); GLOBULIN 4.6 G/DL (2.5-4.1); GLUCOSE, SERUM 174 MG/DL (60-99); SGOT(AST) 23 U/L (5-40); SGPT(ALT) 64 U/L (5-65); SODIUM, SERUM 134 MMOL/L (135-148); TOTAL BILIRUBIN 0.8 MG/DL (0-1.2); TOTAL PROTEIN 7.5 G/DL (6.0-8.5)
[2017-03-05 19:12] LABS: ALKALINE PHOSPHATASE 308 U/L (45-117); CO2 (CARBON DIOXIDE) 37 MMOL/L (24-34); CREATININE 1.59 MG/DL (0.55-1.02); GFR AFRICAN AMERICAN 37 ML/MIN (>=60); GFR NON AFRICAN AMERICAN 32 ML/MIN (>=60); POTASSIUM, SERUM 3.8 MMOL/L (3.5-5.3)
[2017-03-05] MEDS ORDERED: ZANTAC 150 (20:39)
[2017-03-05] MEDS ORDERED: OXYCOD PO (20:39)
[2017-03-05] MEDS ORDERED: LOP50 PO (20:40)
[2017-03-05] MEDS ORDERED: PRIN10 PO (20:40)
[2017-03-05] MEDS ORDERED: SINGULAIR1 PO (20:40)
[2017-03-05] MEDS ORDERED: X5 PO ×2 (20:41)
[2017-03-05] MEDS ORDERED: ADVAIR250 INH (20:41)
[2017-03-05] MEDS ORDERED: ZOCOR80 MG PO (20:42)
[2017-03-06 06:44] LABS: BASOPHILS 0.2 %; BASOPHILS ABSOLUTE 0.02 10/3/uL (0.0-0.16); EOSINOPHILS 2.2 %; EOSINOPHILS ABSOLUTE 0.22 10/3/uL (0.0-0.53); HEMATOCRIT 36.7 % (36.0-48.0); HEMOGLOBIN 12.3 g/dL (12.0-16.0); IMMATURE GRANULOCYTES 0.5 %; IMMATURE GRANULOCYTES ABSOLUTE 0.05 10/3/uL (0.0-0.11); LYMPHOCYTES 13.8 %; LYMPHOCYTES ABSOLUTE 1.38 10/3/uL (0.67-4.30); MEAN CORPUS HGB CONC 33.5 g/dL (32.0-36.0); MEAN CORPUSCULAR HEMOGLOB 32.6 pg (26.0-34.0); MEAN CORPUSCULAR VOLUME 97.3 fL (80-100); MEAN PLATELET VOLUME 9.6 fL (9.2-13.0); NEUTROPHILS 74.3 %; NEUTROPHILS ABSOLUTE 7.43 10/3/uL (2.02-8.40); PLATELET COUNT 313 10/3/uL (150-400); RED CELL COUNT 3.77 10/6/uL (4.0-5.6)
[2017-03-06 06:46] LABS: MANUAL DIFF NO %
[2017-03-06 07:00] LABS: A/G RATIO 0.6 (0.7-1.9); ALBUMIN 2.5 G/DL (3.5-5.0); CHLORIDE, SERUM 92 MMOL/L (96-112); CO2 (CARBON DIOXIDE) 36 MMOL/L (24-34); CREATININE 2.03 MG/DL (0.55-1.02); GFR AFRICAN AMERICAN 28 ML/MIN (>=60); GFR NON AFRICAN AMERICAN 24 ML/MIN (>=60); GLOBULIN 4.2 G/DL (2.5-4.1); GLUCOSE, SERUM 166 MG/DL (60-99); POTASSIUM, SERUM 4.2 MMOL/L (3.5-5.3); SGOT(AST) 15 U/L (5-40); SGPT(ALT) 46 U/L (5-65); SODIUM, SERUM 135 MMOL/L (135-148); TOTAL BILIRUBIN 0.6 MG/DL (0-1.2); TOTAL PROTEIN 6.7 G/DL (6.0-8.5)
[2017-03-06 07:01] LABS: ALKALINE PHOSPHATASE 247 U/L (45-117); BUN (BLOOD UREA NITROGEN) 18 MG/DL (6-23)
[2017-03-06 12:14] LABS: CA-19-9 1559.2 U/ML (< 37.0)
[2017-03-06 12:15] LABS: CEA 2.7 NG/ML
[2017-03-07 05:17] LABS: BASOPHILS 0.3 %; BASOPHILS ABSOLUTE 0.03 10/3/uL (0.0-0.16); EOSINOPHILS 1.8 %; HEMATOCRIT 35.8 % (36.0-48.0); HEMOGLOBIN 11.9 g/dL (12.0-16.0); IMMATURE GRANULOCYTES 0.3 %; IMMATURE GRANULOCYTES ABSOLUTE 0.03 10/3/uL (0.0-0.11); LYMPHOCYTES 11.6 %; LYMPHOCYTES ABSOLUTE 1.26 10/3/uL (0.67-4.30); MEAN CORPUS HGB CONC 33.2 g/dL (32.0-36.0); MEAN CORPUSCULAR VOLUME 96.2 fL (80-100); MEAN PLATELET VOLUME 9.5 fL (9.2-13.0); MONOCYTES 6.8 %; MONOCYTES ABSOLUTE 0.74 10/3/uL (0.21-1.20); NEUTROPHILS 79.2 %; PLATELET COUNT 309 10/3/uL (150-400); RBC DISTRIBUTION WIDTH 12.8 % (12.0-16.0); RED CELL COUNT 3.72 10/6/uL (4.0-5.6); WHITE BLOOD CELLS 10.9 10/3/uL (4.5-10.5)
[2017-03-07 05:21] LABS: MANUAL DIFF NO %
[2017-03-07 05:29] LABS: A/G RATIO 0.6 (0.7-1.9); ALBUMIN 2.4 G/DL (3.5-5.0); ALKALINE PHOSPHATASE 237 U/L (45-117); CALCIUM, SERUM 8.7 MG/DL (8.5-10.4); CHLORIDE, SERUM 96 MMOL/L (96-112); GFR AFRICAN AMERICAN 75 ML/MIN (>=60); GFR NON AFRICAN AMERICAN 65 ML/MIN (>=60); GLUCOSE, SERUM 149 MG/DL (60-99); POTASSIUM, SERUM 3.9 MMOL/L (3.5-5.3); SGOT(AST) 19 U/L (5-40); SGPT(ALT) 35 U/L (5-65); SODIUM, SERUM 136 MMOL/L (135-148); TOTAL BILIRUBIN 0.6 MG/DL (0-1.2); TOTAL PROTEIN 6.4 G/DL (6.0-8.5)
[2017-03-07 05:51] LABS: BUN (BLOOD UREA NITROGEN) 10 MG/DL (6-23); CO2 (CARBON DIOXIDE) 31 MMOL/L (24-34); CREATININE 0.89 MG/DL (0.55-1.02)
[2017-03-08 06:38] LABS: BASOPHILS 0.2 %; BASOPHILS ABSOLUTE 0.02 10/3/uL (0.0-0.16); EOSINOPHILS 2.7 %; EOSINOPHILS ABSOLUTE 0.26 10/3/uL (0.0-0.53); HEMATOCRIT 36.2 % (36.0-48.0); HEMOGLOBIN 11.9 g/dL (12.0-16.0); IMMATURE GRANULOCYTES 0.4 %; IMMATURE GRANULOCYTES ABSOLUTE 0.04 10/3/uL (0.0-0.11); LYMPHOCYTES 12.2 %; LYMPHOCYTES ABSOLUTE 1.17 10/3/uL (0.67-4.30); MEAN CORPUS HGB CONC 32.9 g/dL (32.0-36.0); MEAN CORPUSCULAR HEMOGLOB 32.6 pg (26.0-34.0); MEAN PLATELET VOLUME 9.7 fL (9.2-13.0); MONOCYTES 6.9 %; MONOCYTES ABSOLUTE 0.66 10/3/uL (0.21-1.20); NEUTROPHILS 77.6 %; NEUTROPHILS ABSOLUTE 7.47 10/3/uL (2.02-8.40); PLATELET COUNT 290 10/3/uL (150-400); RBC DISTRIBUTION WIDTH 12.7 % (12.0-16.0); RED CELL COUNT 3.65 10/6/uL (4.0-5.6); WHITE BLOOD CELLS 9.6 10/3/uL (4.5-10.5)
[2017-03-08 06:40] LABS: MEAN CORPUSCULAR VOLUME 99.2 fL (80-100)
[2017-03-08 06:41] LABS: MANUAL DIFF NO %
[2017-03-08 06:52] LABS: A/G RATIO 0.6 (0.7-1.9); ALBUMIN 2.2 G/DL (3.5-5.0); CALCIUM, SERUM 8.7 MG/DL (8.5-10.4); CHLORIDE, SERUM 104 MMOL/L (96-112); CREATININE 0.72 MG/DL (0.55-1.02); GFR AFRICAN AMERICAN 97 ML/MIN (>=60); GFR NON AFRICAN AMERICAN 84 ML/MIN (>=60); GLOBULIN 3.9 G/DL (2.5-4.1); POTASSIUM, SERUM 4.4 MMOL/L (3.5-5.3); SGOT(AST) 39 U/L (5-40); SGPT(ALT) 40 U/L (5-65); SODIUM, SERUM 138 MMOL/L (135-148); TOTAL PROTEIN 6.1 G/DL (6.0-8.5)
[2017-03-08 06:53] LABS: ALKALINE PHOSPHATASE 282 U/L (45-117); BUN (BLOOD UREA NITROGEN) 6 MG/DL (6-23); CO2 (CARBON DIOXIDE) 26 MMOL/L (24-34); GLUCOSE, SERUM 109 MG/DL (60-99); TOTAL BILIRUBIN 1.1 MG/DL (0-1.2)
[2017-03-09 06:10] LABS: BUN (BLOOD UREA NITROGEN) 5 MG/DL (6-23); CHLORIDE, SERUM 107 MMOL/L (96-112); CO2 (CARBON DIOXIDE) 27 MMOL/L (24-34); CREATININE 0.56 MG/DL (0.55-1.02); GFR AFRICAN AMERICAN 108 ML/MIN (>=60); GFR NON AFRICAN AMERICAN 93 ML/MIN (>=60); GLUCOSE, SERUM 109 MG/DL (60-99); SGOT(AST) 29 U/L (5-40); SGPT(ALT) 34 U/L (5-65); SODIUM, SERUM 140 MMOL/L (135-148); TOTAL BILIRUBIN 0.7 MG/DL (0-1.2); TOTAL PROTEIN 5.1 G/DL (6.0-8.5)
[2017-03-09 06:27] LABS: A/G RATIO 0.6 (0.7-1.9); ALKALINE PHOSPHATASE 243 U/L (45-117); CALCIUM, SERUM 7.7 MG/DL (8.5-10.4); GLOBULIN 3.1 G/DL (2.5-4.1)
[2017-03-09 07:06] LABS: BASOPHILS 0.3 %; BASOPHILS ABSOLUTE 0.03 10/3/uL (0.0-0.16); EOSINOPHILS 2.4 %; EOSINOPHILS ABSOLUTE 0.22 10/3/uL (0.0-0.53); HEMATOCRIT 33.1 % (36.0-48.0); HEMOGLOBIN 10.7 g/dL (12.0-16.0); IMMATURE GRANULOCYTES 0.2 %; IMMATURE GRANULOCYTES ABSOLUTE 0.02 10/3/uL (0.0-0.11); LYMPHOCYTES 13.7 %; LYMPHOCYTES ABSOLUTE 1.28 10/3/uL (0.67-4.30); MEAN CORPUS HGB CONC 32.3 g/dL (32.0-36.0); MEAN CORPUSCULAR HEMOGLOB 31.7 pg (26.0-34.0); MEAN CORPUSCULAR VOLUME 97.9 fL (80-100); MEAN PLATELET VOLUME 9.8 fL (9.2-13.0); MONOCYTES 6.2 %; MONOCYTES ABSOLUTE 0.58 10/3/uL (0.21-1.20); NEUTROPHILS 77.2 %; NEUTROPHILS ABSOLUTE 7.23 10/3/uL (2.02-8.40); PLATELET COUNT 282 10/3/uL (150-400); RBC DISTRIBUTION WIDTH 12.7 % (12.0-16.0); RED CELL COUNT 3.38 10/6/uL (4.0-5.6); WHITE BLOOD CELLS 9.4 10/3/uL (4.5-10.5)
[2017-03-09 07:17] LABS: MANUAL DIFF NO %
[2017-03-10 06:57] LABS: BASOPHILS 0.2 %; BASOPHILS ABSOLUTE 0.02 10/3/uL (0.0-0.16); EOSINOPHILS 1.2 %; EOSINOPHILS ABSOLUTE 0.11 10/3/uL (0.0-0.53); HEMATOCRIT 32.8 % (36.0-48.0); HEMOGLOBIN 10.8 g/dL (12.0-16.0); IMMATURE GRANULOCYTES 0.3 %; IMMATURE GRANULOCYTES ABSOLUTE 0.03 10/3/uL (0.0-0.11); LYMPHOCYTES 10.7 %; LYMPHOCYTES ABSOLUTE 1.02 10/3/uL (0.67-4.30); MEAN CORPUS HGB CONC 32.9 g/dL (32.0-36.0); MEAN CORPUSCULAR HEMOGLOB 32.2 pg (26.0-34.0); MEAN CORPUSCULAR VOLUME 97.9 fL (80-100); MEAN PLATELET VOLUME 9.8 fL (9.2-13.0); MONOCYTES 6.1 %; MONOCYTES ABSOLUTE 0.58 10/3/uL (0.21-1.20); NEUTROPHILS 81.5 %; NEUTROPHILS ABSOLUTE 7.76 10/3/uL (2.02-8.40); PLATELET COUNT 251 10/3/uL (150-400); RBC DISTRIBUTION WIDTH 12.7 % (12.0-16.0); RED CELL COUNT 3.35 10/6/uL (4.0-5.6); WHITE BLOOD CELLS 9.5 10/3/uL (4.5-10.5)
[2017-03-10 07:00] LABS: MANUAL DIFF NO %
[2017-03-10 07:15] LABS: A/G RATIO 0.6 (0.7-1.9); BUN (BLOOD UREA NITROGEN) 5 MG/DL (6-23); CHLORIDE, SERUM 108 MMOL/L (96-112); CO2 (CARBON DIOXIDE) 25 MMOL/L (24-34); CREATININE 0.59 MG/DL (0.55-1.02); GFR AFRICAN AMERICAN 106 ML/MIN (>=60); GFR NON AFRICAN AMERICAN 92 ML/MIN (>=60); GLOBULIN 3.5 G/DL (2.5-4.1); GLUCOSE, SERUM 101 MG/DL (60-99); POTASSIUM, SERUM 3.3 MMOL/L (3.5-5.3); SGOT(AST) 35 U/L (5-40); SGPT(ALT) 38 U/L (5-65); SODIUM, SERUM 140 MMOL/L (135-148); TOTAL BILIRUBIN 1.1 MG/DL (0-1.2); TOTAL PROTEIN 5.5 G/DL (6.0-8.5)
[2017-03-10 07:16] LABS: ALKALINE PHOSPHATASE 272 U/L (45-117)
[2017-03-11 06:36] LABS: BASOPHILS 0.7 %; BASOPHILS ABSOLUTE 0.05 10/3/uL (0.0-0.16); EOSINOPHILS 4.3 %; EOSINOPHILS ABSOLUTE 0.32 10/3/uL (0.0-0.53); HEMATOCRIT 31.7 % (36.0-48.0); HEMOGLOBIN 10.7 g/dL (12.0-16.0); IMMATURE GRANULOCYTES 0.1 %; IMMATURE GRANULOCYTES ABSOLUTE 0.01 10/3/uL (0.0-0.11); LYMPHOCYTES ABSOLUTE 1.56 10/3/uL (0.67-4.30); MEAN CORPUS HGB CONC 33.8 g/dL (32.0-36.0); MEAN CORPUSCULAR HEMOGLOB 32.5 pg (26.0-34.0); MEAN CORPUSCULAR VOLUME 96.4 fL (80-100); MEAN PLATELET VOLUME 9.4 fL (9.2-13.0); MONOCYTES 5.8 %; MONOCYTES ABSOLUTE 0.43 10/3/uL (0.21-1.20); NEUTROPHILS 68.1 %; NEUTROPHILS ABSOLUTE 5.07 10/3/uL (2.02-8.40); PLATELET COUNT 280 10/3/uL (150-400); RBC DISTRIBUTION WIDTH 12.6 % (12.0-16.0); RED CELL COUNT 3.29 10/6/uL (4.0-5.6); WHITE BLOOD CELLS 7.4 10/3/uL (4.5-10.5)
[2017-03-11 06:37] LABS: MANUAL DIFF NO %
[2017-03-11 07:02] LABS: ALKALINE PHOSPHATASE 261 U/L (45-117); BUN (BLOOD UREA NITROGEN) 4 MG/DL (6-23); CA-19-9 1372.9 U/ML (< 37.0); CALCIUM, SERUM 8.4 MG/DL (8.5-10.4); CHLORIDE, SERUM 111 MMOL/L (96-112); CO2 (CARBON DIOXIDE) 25 MMOL/L (24-34); CREATININE 0.47 MG/DL (0.55-1.02); DIRECT BILIRUBIN 0.3 MG/DL (0.0-0.4); GFR AFRICAN AMERICAN 114 ML/MIN (>=60); GFR NON AFRICAN AMERICAN 99 ML/MIN (>=60); GLUCOSE, SERUM 118 MG/DL (60-99); INDIRECT BILIRUBIN(NOT ORDER) 0.3 MG/DL (0.1-0.9); POTASSIUM, SERUM 3.3 MMOL/L (3.5-5.3); SGOT(AST) 40 U/L (5-40); SGPT(ALT) 40 U/L (5-65); SODIUM, SERUM 143 MMOL/L (135-148); TOTAL BILIRUBIN 0.6 MG/DL (0-1.2); TOTAL PROTEIN 5.5 G/DL (6.0-8.5)
[2017-03-11 17:27] LABS: POTASSIUM, SERUM 3.7 MMOL/L (3.5-5.3); PREALBUMIN 6.6 MG/DL (17.0-43.0)
[2017-03-12 07:18] LABS: BASOPHILS 0.9 %; BASOPHILS ABSOLUTE 0.06 10/3/uL (0.0-0.16); EOSINOPHILS 4.3 %; EOSINOPHILS ABSOLUTE 0.28 10/3/uL (0.0-0.53); HEMATOCRIT 31.2 % (36.0-48.0); HEMOGLOBIN 10.6 g/dL (12.0-16.0); IMMATURE GRANULOCYTES 0.2 %; IMMATURE GRANULOCYTES ABSOLUTE 0.01 10/3/uL (0.0-0.11); LYMPHOCYTES 23.1 %; LYMPHOCYTES ABSOLUTE 1.49 10/3/uL (0.67-4.30); MANUAL DIFF NO %; MEAN CORPUSCULAR HEMOGLOB 32.1 pg (26.0-34.0); MEAN CORPUSCULAR VOLUME 94.5 fL (80-100); MEAN PLATELET VOLUME 9.5 fL (9.2-13.0); MONOCYTES 7.1 %; MONOCYTES ABSOLUTE 0.46 10/3/uL (0.21-1.20); NEUTROPHILS 64.4 %; NEUTROPHILS ABSOLUTE 4.16 10/3/uL (2.02-8.40); PLATELET COUNT 290 10/3/uL (150-400); RBC DISTRIBUTION WIDTH 12.8 % (12.0-16.0); WHITE BLOOD CELLS 6.5 10/3/uL (4.5-10.5)
[2017-03-12 07:30] LABS: BUN (BLOOD UREA NITROGEN) 2 MG/DL (6-23); CALCIUM, SERUM 8.4 MG/DL (8.5-10.4); CHLORIDE, SERUM 108 MMOL/L (96-112); CO2 (CARBON DIOXIDE) 29 MMOL/L (24-34); CREATININE 0.44 MG/DL (0.55-1.02); GFR AFRICAN AMERICAN 117 ML/MIN (>=60); GFR NON AFRICAN AMERICAN 101 ML/MIN (>=60); GLUCOSE, SERUM 104 MG/DL (60-99); POTASSIUM, SERUM 3.5 MMOL/L (3.5-5.3); SODIUM, SERUM 144 MMOL/L (135-148)
[2017-03-13] MEDS ORDERED: HABIT14 TOP (13:18)
[2017-04-01] MEDS ORDERED: [UNRECOGNIZED DRUG - OTHER] PO (13:07)
== END 2017-03-13 13:55 | disposition home or self-care (01) | DRG 438 ==
LOC: 5SO 16:21
PROVIDERS: Hospitalist; Internal Medicine; Internal Medicine Gastroenterology; Nurse Practitioner Family
PROC: 0DB98ZX Excision of Duodenum, Via Natural or Artificial Opening Endoscopic, Diagnostic (ICD-10-PCS; principal; 2017-03-07 08:30)
DX: K85.80 Other acute pancreatitis without necrosis or infection (principal); K83.1 Obstruction of bile duct; E43 Unspecified severe protein-calorie malnutrition; N17.9 Acute kidney failure, unspecified; Z68.1 Body mass index [BMI] 19.9 or less, adult; J44.9 Chronic obstructive pulmonary disease, unspecified; I10 Essential (primary) hypertension; F17.210 Nicotine dependence, cigarettes, uncomplicated; Z90.49 Acquired absence of other specified parts of digestive tract; Z98.890 Other specified postprocedural states; Z82.49 Family history of ischemic heart disease and other diseases of the circulatory system; Z88.5 Allergy status to narcotic agent; Z79.899 Other long term (current) drug therapy
CPT/HCPCS: 74177; 80048; 80053; 80076; 82150; 82378; 83690; 84132; 84134; 85025; 86301; 87040; 88172; 88173; 88305; 94640; A9270-GY; C1725; J0692; J2405; J3370; Q9967

== ENCOUNTER 2017-03-22 22:52 | Inpatient (IN) | payer MEDICARE, OTHER ==
--- NOTE | ~2017-03-22 | OP ---
Record Of Operation [facility] [address] [place]. [address] NAME: KODI KEVIN : 43 STATUS : ADM IN [facility]#: [id number] AGE: 71 ADM/REG DATE : 03/23/17 MR#: [id number] REPORT SERV DATE: 03/24/17 DICTATED BY: MEETA BERNARDO III DATE: 03/24/17 REPORT STATUS : Draft TRANSCRIBED BY: MODL DATE: 03/24/17 DATE OF PROCEDURE: 03/24/2017 INDICATION: Abnormal CT scan, abdominal pain, nausea, and vomiting. ANESTHESIA: General anesthesia. DESCRIPTION OF PROCEDURE: after consent was obtained. The risks and benefits explained to the patient's and herself, the patient was electively intubated and placed in the prone position through the use of a wedge on the fluoroscopy table in GI lab. An upper endoscope was advanced initially under direct visualization through normal hypopharynx in the esophagus down the stomach and on into the duodenum, where there was an area of the stent enhance the papilla. There was just erythematous heaped-up and nodular folds in and around this area. The air was suctioned. The scope was removed. A therapeutic side- viewing duodenal scope was likewise advanced down to the papilla. The stent could not be seen, due to the folds in this heaped-up mucosa, but the stent was cannulated easily. However, there was debris in the stent. Based on cholangiogram. There was a significant amount of pneumobilia in the biliary system and as such, due to the situation no aggressive intrahepatic opacification was achieved. The cholangiogram of the stent and just proximal to that was performed and there was multiple filling defects noted. As such, a 9 mm balloon was swept through the more proximal portions of bile duct and the common hepatic duct through the stent and copious amounts of debris were removed. No obvious pus. The free flowing bile was noted afterwards. Attempt to perform a pancreatography were neither intended nor attempted. The air was suctioned. Scope was removed. ASSESSMENT: 1. Abnormal mucosa in and around the papilla as described. 2. Mildly obstructed metal mesh stent with biliary debris, status post balloon removal. PLAN: I would recommend Whipple. MY/ZEN Meeta Bernardo III, M.D. / [id number] CC: Lazaro Perales MD
--- NOTE | ~2017-03-22 | CN ---
Consultation Report [facility] [address] [place]. [address] NAME: KODI KEVIN : 43 STATUS : ADM IN PAT#: [id number] AGE: 71 ADM/REG DATE : 03/23/17 MR#: [id number] REPORT SERV DATE: 03/24/17 DICTATED BY: MEETA BERNARDO III DATE: 03/23/17 REPORT STATUS : Draft TRANSCRIBED BY: MODBao DATE: 03/23/17 DATE OF CONSULTATION: 03/23/2017 HISTORY OF PRESENT ILLNESS: The patient is a 71-year-old white female, who presents well with a history of chronic abdominal pain with episodic nausea, vomiting, and 50-pound weight loss with evidence of a pancreatic head mass documented over the last couple of months. There have been exhaustive studies done since December to determine if this patient has a malignancy. While the CA-19-9 has been elevated and on one biopsy it showed atypical cells, only inflammatory cells have been found on any biopsies of the pancreatic mass, the last being on 03/07/2017. She had a metal mesh stent placed by Dr. Sauceda in late December and has been maintained, but she has had multiple episodes of pain and nausea, vomiting. It has been described as pancreatitis with mildly elevated lipase. She had a gallbladder taken out for which help some of the pain but not all of it. She is to see Dr. Vanegas to determine if she needs a Whipple. Over the last 3 days, she has been having progressive symptoms of pain and nausea, vomiting. When she presented, her liver tests are normal, but her lipase is elevated. Likewise, a CT scan showed what appears to be an occluded distal common bile duct stent with proximal pneumobilia. She states that she gets antibiotics during these episodes and gets better. She had an EUS last two and a half weeks ago that document the stent was patent. MEDICATIONS: Xanax, Advair, Prinivil, Lopressor, Singulair, Habitrol, Roxicodone, Zocor, Zantac. ALLERGIES: TYLENOL. PAST MEDICAL HISTORY: 1. Pancreatic head mass with recurrent bouts of abdominal pain and nausea, vomiting attributed to pancreatitis. 2. COPD. 3. Hypertension. 4. Elevated cholesterol. PAST SURGICAL HISTORY: Cholecystectomy, appendectomy, melanoma, basal cell carcinoma, squamous cell carcinoma. SOCIAL HISTORY: She is . No alcohol. She does smoke. PHYSICAL EXAMINATION: GENERAL: Elderly white female. VITAL SIGNS: Stable. HEENT: Atraumatic, normocephalic, anicteric, oropharynx is clean. CHEST: Clear to auscultation. CV: S1, S2. ABDOMEN: Soft, nontender. Good bowel sounds. EXTREMITIES: No edema. Consultation Report [address] [place]. [address] NAME: KODI KEVIN : 43 STATUS : ADM IN [facility]#: [id number] AGE: 71 ADM/REG DATE : 03/23/17 MR#: [id number] REPORT SERV DATE: 03/24/17 DICTATED BY: MEETA BERNARDO III DATE: 03/23/17 REPORT STATUS : Draft TRANSCRIBED BY: ZEN DATE: 03/23/17 LABORATORY DATA: CMP normal. Alk phos 160, albumin 2.7. Lipase now 462. CA 19-9, 1600. White count 7500, hemoglobin 12, platelets 338. INR 1.1. ASSESSMENT AND PLAN: 1. Episodic abdominal pain with nausea, vomiting, with an elevated lipase. The patient is a complicated 71-year-old white female, with a 60-pound weight loss, recurrent episodes of abdominal pain with nausea and vomiting. She had initial improvement with the laparoscopic cholecystectomy, but continues to have symptoms. Certainly my new biopsies of this mass have been negative, but the concern is still there that this could be a malignancy. Other things to consider of course would be autoimmune pancreatitis. She gets better with antibiotics. She has pneumobilia, but the distal end of the stent on CT scan on the sagittal appears to be blocked. Certainly the duodenal stricture could preempt all of these plans. As such, we will do the following:. a. Continue antibiotics. b. IV symptom control. c. IV fluids. d. ERCP to clean out the stent and to take more biopsies. MY/MODL Meeta Bernardo III, M.D. / [id number] CC: Lazaro Perales E. Romina, MD
--- NOTE | ~2017-03-22 | HP ---
History And Physical [place] [id number] [facility] [place]. [address] NAME: KODI KEVIN : 43 STATUS : ADM IN [facility]#: [id number] AGE: 71 ADM/REG DATE : 03/23/17 MR#: [id number] REPORT SERV DATE: 03/23/17 DICTATED BY: REED NORTH DATE: 03/23/17 REPORT STATUS : Draft TRANSCRIBED BY: MODL DATE: 03/23/17 DATE OF ADMISSION: 03/23/2017 CHIEF COMPLAINT: A 71-year-old female presenting with abdominal pain, nausea, vomiting, history of biliary stents. HISTORY OF PRESENTING ILLNESS: The patient's history was obtained through careful interview with the patient, , and daughter, coupled with review of [facility] medical records. The patient, in 2016, presented with increasing abdominal pain and evidence of a pancreatic head mass causing biliary obstruction earlier in February. She had a biliary stent placed under the care of Dr. Jacob with relief of some of her symptoms. The workup of her pancreatic head mass has been difficult, but she has an elevated CA19-9. Once, the patient had a brushing done of her biliary duct and it showed "atypical cells" in 12/2016, but then, followup ultrasound-guided biopsy by Dr. Sauceda was not able to diagnose an underlying cancer. Nonetheless, the patient is still being evaluated for a potential Whipple under the care of Dr. Vanegas. She was last hospitalized 03/05/2017 through 03/13/2017 with biliary stent placement and had significant relief of her symptoms and was able to return home in stable condition. On 03/19/2017, she began to develop nausea and has essentially had intractable vomiting for the last four days since the onset of her symptoms. She describes left epigastric abdominal discomfort, a sharp twisting "rolling around" and bloated quality, 8/10 severity, that comes in paroxysms, that are debilitating. She has had no diarrhea. She has had dizziness, orthostatic symptoms. No shortness of breath. No chest pain. Since 09/2016, the patient has lost a total of 50 pounds. REVIEW OF SYSTEMS: Otherwise, 14-point review of systems was obtained and was negative. PAST MEDICAL HISTORY: 1. Pancreatic head mass with elevated CA19-9, being evaluated for potential Whipple with Dr. Vanegas. 2. Biliary stent placement, followed by Dr. Jacob. 3. COPD. 4. Hypertension. 5. Elevated cholesterol. 6. No cardiac disease. PAST SURGICAL HISTORY: History And Physical [address] [place]. [address] NAME: KODI KEVIN : 43 STATUS : ADM IN [facility]#: [id number] AGE: 71 ADM/REG DATE : 03/23/17 MR#: [id number] REPORT SERV DATE: 03/23/17 DICTATED BY: REED NORTH DATE: 03/23/17 REPORT STATUS : Draft TRANSCRIBED BY: ZEN DATE: 03/23/17 1. Cholecystectomy, 01/2017. 2. Appendectomy. 3. Melanoma removed from the leg. 4. Basal cell carcinoma removed from skin. 5. Squamous cell carcinoma removed from skin. ALLERGIES: NO KNOWN DRUG ALLERGIES. SOCIAL HISTORY: The patient smokes cigarettes. Does not drink alcohol. Is . Lives in [place], [place]. Has two daughters. FAMILY HISTORY: Father with lung cancer. Brother of pneumonia and lung cancer. Mother lived into her 90s. CURRENT MEDICATIONS: Include Xanax 0.5 mg p.o. q.h.s. scheduled and 0.5 mg p.o. daily p.r.n., Advair inhaled twice a day, lisinopril 10 mg p.o. daily, Lopressor 50 mg p.o. b.i.d., Singulair 10 mg p.o. daily, nicotine patch, Roxicodone 5 mg p.o. q.6 hours p.r.n., Zantac 150 mg p.o. daily, Zocor 80 mg p.o. daily. PHYSICAL EXAMINATION: VITAL SIGNS: Temperature 99.6, pulse 81, blood pressure 102/49, respiratory rate 18, and O2 saturation 91% on room air. GENERAL: An ill-appearing female, in evidence of distress secondary to nausea and abdominal pain. HEENT: Pupils equal, round, and reactive to light. No conjunctival pallor. No scleral icterus. Nares are patent. Oropharynx is clear of obstruction. Moist mucous membranes. NECK: Trachea midline. No thyromegaly. LYMPH: No cervical lymphadenopathy. No supraclavicular lymphadenopathy. No inguinal lymphadenopathy. RESPIRATORY: Clear to auscultation at bases. No wheezes, rales, or rhonchi. Normal respiratory effort. CARDIOVASCULAR: Regular rate and rhythm. No murmurs, rubs, or gallops. No extremity edema is appreciated. ABDOMEN: Significant epigastric abdominal pain and left upper quadrant abdominal discomfort. A nondistended abdomen on my exam. No hepatosplenomegaly. DERMATOLOGICAL: Warm and dry extremities. No pallor, no cyanosis. PSYCHIATRIC: Normal affect. Good mood. Alert and oriented x3. LABORATORY DATA: White blood cell count 10.7, hemoglobin 14, hematocrit 41, platelets 434. Sodium 135, potassium 3.6, chloride 91, bicarb 39, BUN 14, creatinine 0.9, glucose 172. Urinalysis shows no evidence of infection, but 26 hyaline casts. Lipase 1190. Alkaline phosphatase 196. STUDIES: CT scan of the abdomen shows possible obstructive biliary stent with air filled and sludge-appearing bile. ASSESSMENT AND PLAN: History And Physical [address] [address] NAME: KODI KEVIN : 43 STATUS : ADM IN [facility]#: [id number] AGE: 71 ADM/REG DATE : 03/23/17 MR#: [id number] REPORT SERV DATE: 03/23/17 DICTATED BY: REED NORTH DATE: 03/23/17 REPORT STATUS : Draft TRANSCRIBED BY: ZEN DATE: 03/23/17 1. Acute pancreatitis. Make n.p.o. Place on IV fluids. Provide supportive care. Place on IV narcotic pain management. 2. Biliary stent. Obtain a GI consult with Dr. Bernardo to consider replacing. 3. Elevated CA19-9 with possible underlying pancreatic cancer and a 50-pound weight loss in the last six months. Recheck a CA19-9 level. The patient being evaluated for Whipple by Dr. Vanegas, surgeon. 4. Cholangitis. Presumptive diagnosis by the patient's exam on presentation. Place on IV Levaquin and IV Flagyl, and monitor. 5. Hyperglycemia. Check hemoglobin A1c. Place on sliding scale insulin. KPL/MODL Reed North M.D. / [id number] CC: Lazaro Johnson MD William M. Cooney, MD
--- NOTE | ~2017-03-22 | DS ---
Discharge Summary [place] [address] [place]. [address] NAME: KODI KEVIN : 43 STATUS : DIS IN PAT#: [id number] AGE: 71 ADM/REG DATE : 03/23/17 MR#: [id number] REPORT SERV DATE: 03/26/17 DICTATED BY: CHLOÉ HOPE DATE: 03/25/17 REPORT STATUS : Draft TRANSCRIBED BY: MODL DATE: 03/25/17 ADMISSION DATE: 03/23/2017 DISCHARGE DATE: 03/25/2017 PRINICIPAL DIAGNOSIS: Acute pancreatitis in association with a pancreatic mass and biliary ductal obstruction. SECONDARY DIAGNOSIS: Abnormal CA-19-9 level, hyperglycemia, history of COPD, and also hypertension. HISTORY OF PRESENT ILLNESS: Please see Dr. Brito's dictation on 03/23/2017. HOSPITAL COURSE: Admitted with recurrent pancreatitis about the fourth episode she had, initially attributed to cholecystitis; however, recurrent events happened and after cholecystectomy, she was found to have a pancreatic mass with a negative endoscopic ultrasound/biopsy, however, elevated CA-19-9, an ongoing suspicion for pancreatic cancer. She has had a biliary stent placed at the previous hospitalization but returned with recurrent pancreatitis. Biliary stent was re-evaluated and some debris cleared out; however, the main issue remained the pancreatic mass. Her surgeon unfortunately was out of town, could not see her here, but appointment was made with his office on , 03/27/2017, and she was released on 03/25/2017 after tolerating a diet to follow up with him. She would take pancreatic enzyme supplements in addition to her home medications and Augmentin for seven additional days of therapy with anticipation of Whipple procedure at some point in the near future. DICTATED BY: Lazaro Perales/ZEN Chloé Hope M.D. / [id number] CC: Lazaro Perales MD Munford Yates III, M.D.
[2017-03-22 21:32] LABS: WBC (NOT ORDERED) (RFLEX) 0 (0-5)
[2017-03-22 21:36] LABS: BASOPHILS 0.6 %; BASOPHILS ABSOLUTE 0.06 10/3/uL (0.0-0.16); EOSINOPHILS 2.9 %; EOSINOPHILS ABSOLUTE 0.31 10/3/uL (0.0-0.53); IMMATURE GRANULOCYTES 0.3 %; IMMATURE GRANULOCYTES ABSOLUTE 0.03 10/3/uL (0.0-0.11); LYMPHOCYTES 23.9 %; LYMPHOCYTES ABSOLUTE 2.56 10/3/uL (0.67-4.30); MEAN CORPUS HGB CONC 33.3 g/dL (32.0-36.0); MEAN CORPUSCULAR HEMOGLOB 33.1 pg (26.0-34.0); MEAN PLATELET VOLUME 9.2 fL (9.2-13.0); MONOCYTES 5.8 %; MONOCYTES ABSOLUTE 0.62 10/3/uL (0.21-1.20); NEUTROPHILS 66.5 %; NEUTROPHILS ABSOLUTE 7.13 10/3/uL (2.02-8.40); RBC DISTRIBUTION WIDTH 13.5 % (12.0-16.0)
[2017-03-22 21:37] LABS: HEMATOCRIT 41.4 % (36.0-48.0); HEMOGLOBIN 13.8 g/dL (12.0-16.0); MANUAL DIFF NO %; MEAN CORPUSCULAR VOLUME 99.3 fL (80-100); PLATELET COUNT 434 10/3/uL (150-400); RED CELL COUNT 4.17 10/6/uL (4.0-5.6); WHITE BLOOD CELLS 10.7 10/3/uL (4.5-10.5)
[2017-03-22 21:41] LABS: ASCORBIC ACID (UR NOT ORDER) 40 (NEG); BILIRUBIN, URINE NEGATIVE (NEG); ER URINALYSIS TAT 0 Hrs 10 Mins; KETONE, URINE NEGATIVE (NEG); LEUKOCYTE ESTERASE(NOT OR TRACE (NEG); NITRITE (URINE) NEG (NEG)
[2017-03-22 21:52] LABS: CREATININE 0.89 MG/DL (0.55-1.02); GFR AFRICAN AMERICAN 75 ML/MIN (>=60); GFR NON AFRICAN AMERICAN 65 ML/MIN (>=60); POTASSIUM, SERUM 3.6 MMOL/L (3.5-5.3); SGOT(AST) 17 U/L (5-40); SGPT(ALT) 24 U/L (5-65); TOTAL BILIRUBIN 0.8 MG/DL (0-1.2)
[2017-03-22 21:53] LABS: A/G RATIO 0.8 (0.7-1.9); ALBUMIN 3.4 G/DL (3.5-5.0); ALKALINE PHOSPHATASE 196 U/L (45-117); BUN (BLOOD UREA NITROGEN) 14 MG/DL (6-23); CALCIUM, SERUM 9.7 MG/DL (8.5-10.4); CHLORIDE, SERUM 91 MMOL/L (96-112); CO2 (CARBON DIOXIDE) 39 MMOL/L (24-34); GLOBULIN 4.3 G/DL (2.5-4.1); GLUCOSE, SERUM 172 MG/DL (60-99); SODIUM, SERUM 135 MMOL/L (135-148); TOTAL PROTEIN 7.7 G/DL (6.0-8.5)
[2017-03-22 22:32] LABS: DIRECT BILIRUBIN 0.2 MG/DL (0.0-0.4); INDIRECT BILIRUBIN(NOT ORDER) 0.6 MG/DL (0.1-0.9)
[~2017-03-22 22:52] MED LIST changes: +HABIT14 TOP; +PRIN10 PO; +ZANTAC 150
[2017-03-23 13:48] LABS: BASOPHILS 0.4 %; BASOPHILS ABSOLUTE 0.03 10/3/uL (0.0-0.16); EOSINOPHILS ABSOLUTE 0.15 10/3/uL (0.0-0.53); IMMATURE GRANULOCYTES 0.1 %; IMMATURE GRANULOCYTES ABSOLUTE 0.01 10/3/uL (0.0-0.11); LYMPHOCYTES 14.3 %; LYMPHOCYTES ABSOLUTE 1.07 10/3/uL (0.67-4.30); MEAN CORPUS HGB CONC 32.7 g/dL (32.0-36.0); MEAN CORPUSCULAR HEMOGLOB 32.6 pg (26.0-34.0); MEAN CORPUSCULAR VOLUME 99.7 fL (80-100); MEAN PLATELET VOLUME 9.5 fL (9.2-13.0); MONOCYTES 5.2 %; MONOCYTES ABSOLUTE 0.39 10/3/uL (0.21-1.20); NEUTROPHILS ABSOLUTE 5.82 10/3/uL (2.02-8.40); PLATELET COUNT 338 10/3/uL (150-400); RBC DISTRIBUTION WIDTH 13.5 % (12.0-16.0); RED CELL COUNT 3.68 10/6/uL (4.0-5.6); WHITE BLOOD CELLS 7.5 10/3/uL (4.5-10.5)
[2017-03-23 13:49] LABS: HEMATOCRIT 36.7 % (36.0-48.0); MANUAL DIFF NO %
[2017-03-23 13:56] LABS: INTERNATIONAL NORMAL RATI 1.1 UNITS (-); PARTIAL THROMBO TIME 31.3 SEC (22.5-37.2); PROTIME (NOT ORD) 13.7 SEC (12.0-14.5)
[2017-03-23 14:20] LABS: C-REACTIVE PROTEIN 8.4 MG/L (<8.0); CA-19-9 1599.3 U/ML (< 37.0); CALCIUM, SERUM 8.8 MG/DL (8.5-10.4); CREATININE 0.77 MG/DL (0.55-1.02); GFR AFRICAN AMERICAN 89 ML/MIN (>=60); GFR NON AFRICAN AMERICAN 77 ML/MIN (>=60); SGOT(AST) 19 U/L (5-40); SGPT(ALT) 21 U/L (5-65); SODIUM, SERUM 138 MMOL/L (135-148); TOTAL BILIRUBIN 0.7 MG/DL (0-1.2); TOTAL PROTEIN 6.5 G/DL (6.0-8.5)
[2017-03-23 14:21] LABS: A/G RATIO 0.7 (0.7-1.9); ALBUMIN 2.7 G/DL (3.5-5.0); ALKALINE PHOSPHATASE 160 U/L (45-117); BUN (BLOOD UREA NITROGEN) 9 MG/DL (6-23); CHLORIDE, SERUM 102 MMOL/L (96-112); CO2 (CARBON DIOXIDE) 31 MMOL/L (24-34); GLOBULIN 3.8 G/DL (2.5-4.1); GLUCOSE, SERUM 106 MG/DL (60-99); POTASSIUM, SERUM 4.4 MMOL/L (3.5-5.3); ULTRASENSITIVE TSH 0.742 MCIU/ML (0.358-3.740)
[2017-03-23 14:28] LABS: SED RATE 60 MM/HR (0-20)
[2017-03-23 14:35] LABS: PROCALCITONIN 0.51 ng/mL (<0.5)
[2017-03-24 04:27] LABS: BASOPHILS 0.6 %; BASOPHILS ABSOLUTE 0.03 10/3/uL (0.0-0.16); EOSINOPHILS 6.3 %; EOSINOPHILS ABSOLUTE 0.34 10/3/uL (0.0-0.53); HEMOGLOBIN 11.2 g/dL (12.0-16.0); IMMATURE GRANULOCYTES 0.2 %; IMMATURE GRANULOCYTES ABSOLUTE 0.01 10/3/uL (0.0-0.11); LYMPHOCYTES 27.9 %; LYMPHOCYTES ABSOLUTE 1.51 10/3/uL (0.67-4.30); MEAN PLATELET VOLUME 9.4 fL (9.2-13.0); MONOCYTES 8.9 %; MONOCYTES ABSOLUTE 0.48 10/3/uL (0.21-1.20); NEUTROPHILS 56.1 %; NEUTROPHILS ABSOLUTE 3.05 10/3/uL (2.02-8.40); PLATELET COUNT 321 10/3/uL (150-400); RBC DISTRIBUTION WIDTH 13.4 % (12.0-16.0); WHITE BLOOD CELLS 5.4 10/3/uL (4.5-10.5)
[2017-03-24 04:28] LABS: MANUAL DIFF NO %
[2017-03-24 04:45] LABS: A/G RATIO 0.7 (0.7-1.9); ALBUMIN 2.5 G/DL (3.5-5.0); ALKALINE PHOSPHATASE 150 U/L (45-117); BUN (BLOOD UREA NITROGEN) 7 MG/DL (6-23); CALCIUM, SERUM 8.9 MG/DL (8.5-10.4); CHLORIDE, SERUM 107 MMOL/L (96-112); CO2 (CARBON DIOXIDE) 29 MMOL/L (24-34); CREATININE 0.69 MG/DL (0.55-1.02); GFR AFRICAN AMERICAN 101 ML/MIN (>=60); GFR NON AFRICAN AMERICAN 87 ML/MIN (>=60); GLOBULIN 3.7 G/DL (2.5-4.1); GLUCOSE, SERUM 122 MG/DL (60-99); SGOT(AST) 16 U/L (5-40); SGPT(ALT) 17 U/L (5-65); SODIUM, SERUM 143 MMOL/L (135-148); TOTAL BILIRUBIN 0.5 MG/DL (0-1.2); TOTAL PROTEIN 6.2 G/DL (6.0-8.5)
[2017-03-25 04:24] LABS: CALCIUM, SERUM 9.2 MG/DL (8.5-10.4); CHLORIDE, SERUM 101 MMOL/L (96-112); CO2 (CARBON DIOXIDE) 29 MMOL/L (24-34); CREATININE 0.86 MG/DL (0.55-1.02); GFR AFRICAN AMERICAN 78 ML/MIN (>=60); GFR NON AFRICAN AMERICAN 67 ML/MIN (>=60); POTASSIUM, SERUM 4.3 MMOL/L (3.5-5.3); SODIUM, SERUM 137 MMOL/L (135-148)
[2017-03-25 04:25] LABS: BUN (BLOOD UREA NITROGEN) 11 MG/DL (6-23); GLUCOSE, SERUM 196 MG/DL (60-99)
[2017-03-25] MEDS ORDERED: ZENPEP5000 UNIT PO (10:10)
[2017-03-25] MEDS ORDERED: AUG875 PO (10:10)
[2017-03-25] MEDS ORDERED: PEP20 PO (10:11)
[2017-03-25] MEDS ORDERED: FLORASTOR250 MG PO (10:12)
[2017-04-01] MEDS ORDERED: [UNRECOGNIZED DRUG - OTHER] PO (13:07)
== END 2017-03-25 15:05 | disposition home or self-care (01) | DRG 919 ==
LOC: ER 22:52 → 4SO 03-23 00:43
PROVIDERS: Hospitalist; Internal Medicine; Internal Medicine Gastroenterology; Nurse Practitioner
PROC: BF101ZZ Fluoroscopy of Bile Ducts using Low Osmolar Contrast (ICD-10-PCS; principal; 2017-03-24 11:45)
PROC: 0FC98ZZ Extirpation of Matter from Common Bile Duct, Via Natural or Artificial Opening Endoscopic (ICD-10-PCS; 2017-03-24 11:45)
DX: T85.590A Other mechanical complication of bile duct prosthesis, initial encounter (principal); K85.90 Acute pancreatitis without necrosis or infection, unspecified; E11.65 Type 2 diabetes mellitus with hyperglycemia; J44.9 Chronic obstructive pulmonary disease, unspecified; Z68.1 Body mass index [BMI] 19.9 or less, adult; Y84.8 Other medical procedures as the cause of abnormal reaction of the patient, or of later complication, without mention of misadventure at the time of the procedure; Y92.009 Unspecified place in unspecified non-institutional (private) residence as the place of occurrence of the external cause; I10 Essential (primary) hypertension; E78.00 Pure hypercholesterolemia, unspecified; Z85.820 Personal history of malignant melanoma of skin; Z85.828 Personal history of other malignant neoplasm of skin; F17.210 Nicotine dependence, cigarettes, uncomplicated; Z88.8 Allergy status to other drugs, medicaments and biological substances; D37.8 Neoplasm of uncertain behavior of other specified digestive organs; R63.4 Abnormal weight loss
CPT/HCPCS: 74177; 74330; 80048; 80053; 81001; 82150; 82248; 82962; 83036; 83605; 83615; 83690; 83735; 84145; 84443; 85025; 85610; 85652; 85730; 86140; 86301; 94640; 96374; 99285; A9270-GY; C1769; J0330; J1956; J2405; J2710; J3010; Q9967

== ENCOUNTER 2017-04-09 07:43 | Inpatient (IN) | payer MEDICARE, OTHER ==
[2017-04-03 21:27] LABS: BASOPHILS 0.9 %; BASOPHILS ABSOLUTE 0.07 10/3/uL (0.0-0.16); EOSINOPHILS 3.6 %; EOSINOPHILS ABSOLUTE 0.28 10/3/uL (0.0-0.53); HEMATOCRIT 41.6 % (36.0-48.0); HEMOGLOBIN 13.2 g/dL (12.0-16.0); IMMATURE GRANULOCYTES 0.3 %; IMMATURE GRANULOCYTES ABSOLUTE 0.02 10/3/uL (0.0-0.11); LYMPHOCYTES 27.2 %; LYMPHOCYTES ABSOLUTE 2.12 10/3/uL (0.67-4.30); MANUAL DIFF NO %; MEAN CORPUS HGB CONC 31.7 g/dL (32.0-36.0); MEAN CORPUSCULAR HEMOGLOB 32.4 pg (26.0-34.0); MEAN PLATELET VOLUME 10.6 fL (9.2-13.0); MONOCYTES 5.3 %; MONOCYTES ABSOLUTE 0.41 10/3/uL (0.21-1.20); NEUTROPHILS 62.7 %; NEUTROPHILS ABSOLUTE 4.88 10/3/uL (2.02-8.40); PLATELET COUNT 309 10/3/uL (150-400); RBC DISTRIBUTION WIDTH 14.6 % (12.0-16.0); RED CELL COUNT 4.08 10/6/uL (4.0-5.6); WHITE BLOOD CELLS 7.8 10/3/uL (4.5-10.5)
[2017-04-03 21:33] LABS: PARTIAL THROMBO TIME 38.2 SEC (22.5-37.2)
[2017-04-03 21:45] LABS: BUN (BLOOD UREA NITROGEN) 10 MG/DL (6-23); CALCIUM, SERUM 9.1 MG/DL (8.5-10.4); CHLORIDE, SERUM 103 MMOL/L (96-112); CO2 (CARBON DIOXIDE) 31 MMOL/L (24-34); CREATININE 0.71 MG/DL (0.55-1.02); GFR AFRICAN AMERICAN 99 ML/MIN (>=60); GFR NON AFRICAN AMERICAN 85 ML/MIN (>=60); POTASSIUM, SERUM 4.4 MMOL/L (3.5-5.3); SGOT(AST) 43 U/L (5-40); SGPT(ALT) 33 U/L (5-65); SODIUM, SERUM 138 MMOL/L (135-148); TOTAL BILIRUBIN 0.3 MG/DL (0-1.2); TOTAL PROTEIN 6.8 G/DL (6.0-8.5)
[2017-04-03 21:46] LABS: A/G RATIO 1.1 (0.7-1.9); ALBUMIN 3.5 G/DL (3.5-5.0); ALKALINE PHOSPHATASE 136 U/L (45-117); GLOBULIN 3.3 G/DL (2.5-4.1); GLUCOSE, SERUM 142 MG/DL (60-99)
--- NOTE | ~2017-04-09 | DS ---
Discharge Summary [facility] [address] [place]. [address] NAME: KODI KEVIN : 43 STATUS : DIS IN PAT#: [id number] AGE: 71 ADM/REG DATE : 04/09/17 MR#: [id number] REPORT SERV DATE: 04/29/17 DICTATED BY: KENZIE VANEGAS DATE: 04/28/17 REPORT STATUS : Draft TRANSCRIBED BY: MODBao DATE: 04/28/17 Data Collection from hospitalization DISCHARGE DIAGNOSIS(ES): 1. Distal common bile duct stricture. 2. Hypertension. 3. Hyperlipidemia. 4. History of melanoma. 5. History of pancreatitis. 6. History of obstructive jaundice. 7. Tobacco use. CONSULTATIONS: None. PROCEDURES PERFORMED: Pancreaticoduodenectomy, omental pedicle flap 04/09/2017. PATHOLOGY: Common hepatic artery lymph node biopsy-one lymph node negative for tumor (0/1). Distal stomach, duodenum, and pancreas-pancreaticoduodenectomy (Whipple resection)-invasive well-differentiated adenocarcinoma. MEDICATIONS: Xanax 0.5 mg at bedtime and 0.5 mg daily as needed, Advair Diskus one puff via inhaler twice a day as needed, Zenpep 4 capsules as needed, Lopressor 50 mg twice a day, Singulair 10 mg every morning, Habitrol one patch topically daily, Prilosec 20 mg daily, Zofran 4 mg one to two tablets every four to six hours as needed, Percocet 7.5/325 one to two tablets every four to six hours as needed, Zocor 80 mg at bedtime, and Activia yogurt one daily. She was instructed not to continue oxycodone 5, Augmentin, or for famotidine. CONDITION AT DISCHARGE: Stable. DISPOSITION: The patient was discharged home on a soft diet with activities as instructed. She would follow up with me, 05/01/2017. HOSPITAL COURSE: This is a 71-year-old female who has a diagnosis of distal common bile duct stricture. Preoperative brushings were negative, but the overall picture was concerning for malignant distal stricture. Treatment options were discussed, and it was elected to proceed with surgical intervention. She was admitted to the hospital at this time for further evaluation and treatment. Upon admission, she was taken to the operating room where she underwent the above-mentioned procedure. She tolerated this well. There were no complications. On postop day 1, her pain was controlled. The Fregoso catheter was going to be removed. She seemed to be doing well. She was transferred to the floor. She was evaluated by Physical Therapy. On postop day #2, her T-max was 99.4. We encouraged her to ambulate. Pathology results were pending. The following day, she was tolerating clear liquids. The PRODUCTION ANALYST was discontinued, and she was placed on oral pain medications. Clear liquids would be continued the rest of the day. On 04/13/2017, we advanced her diet to full liquids. Her pain medications had been increased. Her abdomen was soft and nondistended and appropriately tender. The next day, Discharge Summary [address] [address] NAME: KODI KEVIN : 43 STATUS : DIS IN PAT#: [id number] AGE: 71 ADM/REG DATE : 04/09/17 MR#: [id number] REPORT SERV DATE: 04/29/17 DICTATED BY: KENZIE VANEGAS DATE: 04/28/17 REPORT STATUS : Draft TRANSCRIBED BY: ZEN DATE: 04/28/17 she said she felt great. She was ambulating. She did have a bowel movement and was passing flatus. Discharge planning was performed. We advanced her diet. On 04/15/2017, she had no new complaints. She was tolerating oral intake. She continued to have bowel movements. Discharge instructions were given. Pathology results had been discussed. Due to her improved and stable condition, she was discharged home with the above-stated instructions. Information collected by: Judy Wallis I submit the above information as my discharge summary. TG/MODL Kenzie Vanegas MD / [id number] CC: MD KYLE Tucker PAUL DANIEL
--- NOTE | ~2017-04-09 | OP ---
Record Of Operation [facility] [address] [place]. [address] NAME: KODI KEVIN : 43 STATUS : ADM IN [facility]#: [id number] AGE: 71 ADM/REG DATE : 04/09/17 MR#: [id number] REPORT SERV DATE: 04/09/17 DICTATED BY: KENZIE VANEGAS DATE: 04/09/17 REPORT STATUS : Draft TRANSCRIBED BY: MODL DATE: 04/09/17 DATE OF PROCEDURE: 04/09/2017 SERVICE: General Surgery. ATTENDING PHYSICIAN: Kenzie Vanegas MD, present and scrubbed throughout. DIRECTOR OF CAMPUS RECREATION: Tyrese Rockwell MD, resident. PREOPERATIVE DIAGNOSIS: Distal common bile duct stricture. POSTOPERATIVE DIAGNOSIS: Distal common bile duct stricture. PROCEDURES: 1. Pancreaticoduodenectomy. 2. Omental pedicle flap. ANESTHESIA: General endotracheal. ESTIMATED BLOOD LOSS: Approximately 150 mL. COMPLICATIONS: None. SPECIMEN: As above. BRIEF HISTORY: Patient is a very pleasant 71-year-old white female with diagnosis of a distal common bile duct stricture. Preoperative were negative, but the overall picture was concerning for malignant distal stricture. The risks, benefits, and alternatives to pancreaticoduodenectomy were explained to the patient in detail. The risks include, but are not limited to, bleeding, infection, reoperation, injury to surrounding structures, reactions to anesthetic medications, incisional hernias, perioperative cardiac events, perioperative thromboembolic events, anastomotic leak, possible . The patient stated clear understanding of all the risks and requested the procedure be done. DESCRIPTION OF PROCEDURE: After surgical consent was obtained, the patient was transported to the operative theater and onto the operating room table in supine position. General endotracheal anesthesia was administered without difficulty. The patient's abdomen was prepped and draped in the standard sterile fashion. Preoperative antibiotics were given and time-out was performed in order to ensure the proper patient, procedure. Incision was made just below the xiphoid down the midline to an area above the umbilicus. The underlying tissues were divided using electrocautery and the abdominal cavity was entered bluntly. The falciform ligament was ligated and divided and preserved. We palpated the abdominal cavity, ligament of Treitz as well as the liver, and neither felt nor saw any evidence of cancer. We divided the gastrocolic ligament into the lesser sac. We identified the SMV and created a tunnel between the pancreas and the portal vein. We divided the gastrohepatic ligament and identified a large, but benign-appearing common hepatic artery lymph node. This was Record Of Operation [address] [place]. [address] NAME: KODI KEVIN : 43 STATUS : ADM IN PAT#: [id number] AGE: 71 ADM/REG DATE : 04/09/17 MR#: [id number] REPORT SERV DATE: 04/09/17 DICTATED BY: KENZIE VANEGAS DATE: 04/09/17 REPORT STATUS : Draft TRANSCRIBED BY: ZEN DATE: 04/09/17 excised and the common hepatic artery was identified. We divided the right gastric and gastroduodenal arteries after ligating them. We could feel the stent in the common bile duct. We identified the portal vein above the pancreas and completed our tunnel and we secured this space with a Epi drain. We mobilized the hepatic artery off the anterior surface of the common bile duct and divided the common bile duct above the stent and was felt to be completely normal area of the common bile duct. Prior to any of this, we generously Kocherized the duodenum without difficulty. At this point, we divided the omentum on the lesser and greater curvature of the stomach and then divided the stomach approximately 1 cm proximal to the pylorus using a CAIO stapler with a green load. We then divided the proximal jejunum approximately 20 cm past the ligament of Treitz using a CAIO stapler. The ligament of Treitz as well as the mesentery of the proximal jejunum was divided using Harmonic Scalpel. We flipped the proximal jejunum over to the right side of the abdomen. We placed hemostatic stay sutures to the inferior aspect of the pancreas held with a Epi drain and divided the pancreatic neck using electrocautery. We then carefully mobilized the portal vein away from the superior mesenteric artery. Once we split SMA, we divided the uncinate process off the SMA using the Harmonic Scalpel. There was a large packet of lymph nodes posterior to the common bile duct that were taken along with the specimen. We marked the common bile duct and pancreatic margin and sent it for frozen examination. There was no evidence of malignancy at either area. We then prepared for our reconstruction. We ensured hemostasis and then brought up the jejunum through a bare area in the transverse colon mesentery to the right of the middle colic vessels. We made an enterotomy in the jejunum and then we tacked the mucosa to the serosa using interrupted Prolene sutures. We then created our pancreaticojejunostomy in a two-layer fashion. The inner layer was done in a [id number] fashion with interrupted 4-0 PDS sutures. The outer layer was done with 2-0 Ethibond and 3-0 silk sutures. The anastomosis was in an end- to-side configuration. Approximately 10 cm downstream from the pancreaticojejunostomy, we prepared for our hepaticojejunostomy. This was done in an end-to-side oxex-hv-aerzza fashion using interrupted 4-0 PDS sutures. We tacked the mesentery of the transverse colon to the jejunum as the jejunum was brought in a retrocolic fashion. In antecolic fashion approximately 45 cm downstream from the hepaticojejunostomy, we brought up a loop of jejunum for our gastrojejunostomy. This was done in a rars-mf-zatm functional end-to-end stapled fashion. The anastomosis was created using a CAIO-75 stapler and the common enterotomy was closed with a TX60B. We placed a crotch stitch to prevent twisting of the anastomosis and laid the greater omentum on top of this anastomosis which created a place with interrupted silk suture. We attempted to place the falciform ligament on top of our pancreaticojejunostomy, but there was not enough length to do this as the liver was quite enlarged. We used the lesser omentum coming off the stomach intact on top of our pancreaticojejunostomy in a vascularized omental pedicle flap. We irrigated out the abdomen with 4 L of sterile saline and placed a 19-Nepali round Nolberto drain through the left abdominal wall and placed it anteriorly above our anastomoses. We saw no evidence of continued bleeding or bile leakage. We secured a drain at the skin level with nylon suture and then closed the fascia using running looped PDS suture. Once the fascia was closed, we irrigated out the subcutaneous tissues and skin was pulse lavaged using x3 L. The skin was then closed with stapling device. At the end of the procedure the instrument, lap, needle counts were all correct and the patient was awoke from anesthesia having tolerated the procedure without difficulty and returned to the PACU in stable condition. Record Of Operation [facility] [address] [address] NAME: KODI KEVIN : 43 STATUS : ADM IN PAT#: [id number] AGE: 71 ADM/REG DATE : 04/09/17 MR#: [id number] REPORT SERV DATE: 04/09/17 DICTATED BY: KENZIE VANEGAS DATE: 04/09/17 REPORT STATUS : Draft TRANSCRIBED BY: ZEN DATE: 04/09/17 SHANTE/ZEN Kenzie Vanegas MD / [id number] CC: Kenzie Vanegas MD
[~2017-04-09 07:43] MED LIST changes: +AUG875 PO; +FLORASTOR250 MG PO; +PEP20 PO; +ZENPEP5000 UNIT PO; +[UNRECOGNIZED DRUG - OTHER] PO
[2017-04-09 18:07] LABS: BASOPHILS 0.1 %; BASOPHILS ABSOLUTE 0.02 10/3/uL (0.0-0.16); EOSINOPHILS 0.1 %; EOSINOPHILS ABSOLUTE 0.01 10/3/uL (0.0-0.53); IMMATURE GRANULOCYTES 0.2 %; IMMATURE GRANULOCYTES ABSOLUTE 0.04 10/3/uL (0.0-0.11); LYMPHOCYTES 4.3 %; LYMPHOCYTES ABSOLUTE 0.79 10/3/uL (0.67-4.30); MEAN CORPUS HGB CONC 32.1 g/dL (32.0-36.0); MEAN CORPUSCULAR HEMOGLOB 31.8 pg (26.0-34.0); MEAN CORPUSCULAR VOLUME 99.1 fL (80-100); MEAN PLATELET VOLUME 9.9 fL (9.2-13.0); MONOCYTES ABSOLUTE 0.74 10/3/uL (0.21-1.20); NEUTROPHILS 91.3 %; NEUTROPHILS ABSOLUTE 16.98 10/3/uL (2.02-8.40); PLATELET COUNT 232 10/3/uL (150-400); RBC DISTRIBUTION WIDTH 14.3 % (12.0-16.0); RED CELL COUNT 3.46 10/6/uL (4.0-5.6)
[2017-04-09 18:09] LABS: HEMATOCRIT 34.3 % (36.0-48.0); MANUAL DIFF NO %; WHITE BLOOD CELLS 18.6 10/3/uL (4.5-10.5)
[2017-04-09 18:28] LABS: A/G RATIO 1.1 (0.7-1.9); ALBUMIN 3.2 G/DL (3.5-5.0); CALCIUM, SERUM 8.3 MG/DL (8.5-10.4); CHLORIDE, SERUM 108 MMOL/L (96-112); CREATININE 0.84 MG/DL (0.55-1.02); GFR AFRICAN AMERICAN 80 ML/MIN (>=60); GFR NON AFRICAN AMERICAN 69 ML/MIN (>=60); GLOBULIN 2.8 G/DL (2.5-4.1); POTASSIUM, SERUM 4.8 MMOL/L (3.5-5.3); SGOT(AST) 149 U/L (5-40); SGPT(ALT) 131 U/L (5-65); SODIUM, SERUM 140 MMOL/L (135-148); TOTAL BILIRUBIN 0.5 MG/DL (0-1.2)
[2017-04-09 18:31] LABS: ALKALINE PHOSPHATASE 91 U/L (45-117); BUN (BLOOD UREA NITROGEN) 24 MG/DL (6-23); CO2 (CARBON DIOXIDE) 24 MMOL/L (24-34); GLUCOSE, SERUM 249 MG/DL (60-99)
[2017-04-10 04:13] LABS: BASOPHILS 0 %; BASOPHILS ABSOLUTE 0.01 10/3/uL (0.0-0.16); EOSINOPHILS 0 %; HEMATOCRIT 33.3 % (36.0-48.0); IMMATURE GRANULOCYTES 0.4 %; IMMATURE GRANULOCYTES ABSOLUTE 0.08 10/3/uL (0.0-0.11); LYMPHOCYTES 3.4 %; LYMPHOCYTES ABSOLUTE 0.72 10/3/uL (0.67-4.30); MEAN CORPUSCULAR HEMOGLOB 32.8 pg (26.0-34.0); MEAN CORPUSCULAR VOLUME 99.4 fL (80-100); MONOCYTES 4.5 %; MONOCYTES ABSOLUTE 0.96 10/3/uL (0.21-1.20); NEUTROPHILS 91.7 %; NEUTROPHILS ABSOLUTE 19.66 10/3/uL (2.02-8.40); PLATELET COUNT 253 10/3/uL (150-400); RBC DISTRIBUTION WIDTH 14.1 % (12.0-16.0); RED CELL COUNT 3.35 10/6/uL (4.0-5.6); WHITE BLOOD CELLS 21.4 10/3/uL (4.5-10.5)
[2017-04-10 04:25] LABS: MANUAL DIFF NO %
[2017-04-10 04:28] LABS: ALBUMIN 3.1 G/DL (3.5-5.0); ALKALINE PHOSPHATASE 81 U/L (45-117); BUN (BLOOD UREA NITROGEN) 24 MG/DL (6-23); CALCIUM, SERUM 8.4 MG/DL (8.5-10.4); CHLORIDE, SERUM 105 MMOL/L (96-112); CO2 (CARBON DIOXIDE) 26 MMOL/L (24-34); CREATININE 0.85 MG/DL (0.55-1.02); GFR AFRICAN AMERICAN 79 ML/MIN (>=60); GFR NON AFRICAN AMERICAN 68 ML/MIN (>=60); GLUCOSE, SERUM 233 MG/DL (60-99); POTASSIUM, SERUM 4.7 MMOL/L (3.5-5.3); SGOT(AST) 136 U/L (5-40); SGPT(ALT) 110 U/L (5-65); SODIUM, SERUM 138 MMOL/L (135-148); TOTAL BILIRUBIN 0.5 MG/DL (0-1.2); TOTAL PROTEIN 6.1 G/DL (6.0-8.5)
[2017-04-12 05:01] LABS: BASOPHILS 0.1 %; BASOPHILS ABSOLUTE 0.01 10/3/uL (0.0-0.16); EOSINOPHILS 1.6 %; EOSINOPHILS ABSOLUTE 0.17 10/3/uL (0.0-0.53); HEMATOCRIT 33.1 % (36.0-48.0); HEMOGLOBIN 10.4 g/dL (12.0-16.0); IMMATURE GRANULOCYTES 0.2 %; IMMATURE GRANULOCYTES ABSOLUTE 0.02 10/3/uL (0.0-0.11); LYMPHOCYTES 16.2 %; LYMPHOCYTES ABSOLUTE 1.68 10/3/uL (0.67-4.30); MEAN CORPUS HGB CONC 31.4 g/dL (32.0-36.0); MEAN CORPUSCULAR HEMOGLOB 31.5 pg (26.0-34.0); MEAN CORPUSCULAR VOLUME 100.3 fL (80-100); MEAN PLATELET VOLUME 10.1 fL (9.2-13.0); MONOCYTES 7.3 %; MONOCYTES ABSOLUTE 0.76 10/3/uL (0.21-1.20); NEUTROPHILS 74.6 %; NEUTROPHILS ABSOLUTE 7.71 10/3/uL (2.02-8.40); PLATELET COUNT 227 10/3/uL (150-400); RBC DISTRIBUTION WIDTH 14.2 % (12.0-16.0)
[2017-04-12 05:05] LABS: MANUAL DIFF NO %; WHITE BLOOD CELLS 10.4 10/3/uL (4.5-10.5)
[2017-04-12 05:12] LABS: BUN (BLOOD UREA NITROGEN) 8 MG/DL (6-23); CALCIUM, SERUM 8.5 MG/DL (8.5-10.4); CHLORIDE, SERUM 100 MMOL/L (96-112); CO2 (CARBON DIOXIDE) 35 MMOL/L (24-34); CREATININE 0.61 MG/DL (0.55-1.02); GFR AFRICAN AMERICAN 105 ML/MIN (>=60); GFR NON AFRICAN AMERICAN 91 ML/MIN (>=60); GLUCOSE, SERUM 133 MG/DL (60-99); PHOSPHORUS, SERUM 2.4 MG/DL (2.5-4.5); SODIUM, SERUM 137 MMOL/L (135-148)
[2017-04-15] MEDS ORDERED: ZOFRAN4 PO (13:51)
[2017-04-15] MEDS ORDERED: PRILOSEC OTC20 MG PO (13:51)
[2017-04-15] MEDS ORDERED: PERCOCET 7.5/321 TAB PO (13:52)
== END 2017-04-15 16:34 | disposition home or self-care (01) | DRG 405 ==
LOC: SDC/OF 07:43 → MIC 17:02 → 5SO 04-10 14:43
PROVIDERS: Transplant Surgery
PROC: 0DUS07Z (ICD-10-PCS; 2017-04-09)
PROC: 0FBG0ZZ Excision of Pancreas, Open Approach (ICD-10-PCS; principal; 2017-04-09 10:00)
DX: C25.0 Malignant neoplasm of head of pancreas (principal); K83.1 Obstruction of bile duct; C77.2 Secondary and unspecified malignant neoplasm of intra-abdominal lymph nodes; E78.5 Hyperlipidemia, unspecified; I10 Essential (primary) hypertension; F17.210 Nicotine dependence, cigarettes, uncomplicated; Z85.820 Personal history of malignant melanoma of skin; Z90.49 Acquired absence of other specified parts of digestive tract; Z98.890 Other specified postprocedural states; Z80.1 Family history of malignant neoplasm of trachea, bronchus and lung; Z82.3 Family history of stroke; Z79.899 Other long term (current) drug therapy
CPT/HCPCS: 36415; 71020-PO; 80048; 80053; 82330; 82962; 83735; 84100; 85025; 85610; 85730; 86850; 86900; 86901; 86920; 87641; 88305; 88309; 88331; 88332; 93005; 97116-GP; 97161-GP; A9270-GY; G8978-CK-GP; G8979-CJ-GP; J0690; J1940; J2250; J2370; J2405; J2710; J2795; J3010; P9045